=== PATIENT | male | born 1950 | race Caucasian/White ===

== ENCOUNTER 2018-04-22 08:12 | Outpatient (CLI) | payer OTHER ==
--- NOTE | 2018-04-22 09:33 | RAD ---
FOUR VIEWS LUMBAR SPINE INCLUDING FLEXION AND EXTENSION VIEWS: DATE: 04/22/2018. HISTORY: Lumbar radiculopathy, low back pain. FINDINGS: There are 5 [id number] lumbar-type vertebral bodies. Vertebral body heights are within normal l imits. There is trace grade I anterolisthesis of L4 on L5 without abnormal translation of motion see n between flexion and extension views. Facet degenerative changes are seen at the L4-5 and L5-S1 lev el with small scattered osteophytes seen throughout the visualized lower thoracic as well as involvin g the lumbar spine. There is narrowing of the intervertebral disk spaces at the L4-5 and L5-S1 level s. No fracture is seen. Prominent vascular calcifications are seen in the abdominal aorta and iliac arteries. Surgical clips overlie the right upper quadrant with a fractured median sternotomy wire s een inferiorly. IMPRESSION: Degenerative change of the lumbar spine with grade I anterolisthesis of L4 on L5. POS: [facility]
--- NOTE | 2018-04-22 09:37 | RAD ---
CERVICAL SPINE 4 VIEWS: Date: 04/22/18 HISTORY: Neck pain. Cervical fusion. COMPARISON: None. FINDINGS: Anterior fusion plate with transvertebral body screw at C4, C5, C6, and C7. The screws at C7 appear t o longer be flush with the vertebral body plate. Additionally, there is mild retraction of the screws at C4. No perihardware lucency. Disc prosthesis at C4-C5, C5-C6, and C6-C7 is noted. On the AP projection, no malalignment. Predental space is normal. In the neutral position, no malalignment. No abnormal motion upon extension or flexion. IMPRESSION: Findings suggesting loosening of the transvertebral body screws at C7 and C4. There is evidence of sc rew retraction. POS: [facility]
--- NOTE | 2018-04-22 10:55 | MRI ---
MRI LUMBAR SPINE WITHOUT CONTRAST: Date: 04/22/18 HISTORY: Lumbar radiculopathy. Chronic low back pain. Patient fell from a ladder 20 years ago. COMPARISON: None. TECHNIQUE: MRI lumbar spine is performed without intravenous Gadolinium administration. Multisequential, multipl akbar imaging is performed. FINDINGS: Appropriate T1 marrow signal intensity of the lumbar vertebra. Lumbar spine vertebral body height is maintained and there is no fracture. No significant STIR hyperintensity to suggest vertebral body hamlet ma or ligamentous injury. Symmetric signal intensity of the psoas muscles. There are multiple T1 hypointense, T2 hyperintense l esions in the kidneys, compatible with cortical cysts. Conus medullaris terminates at the upper aspect of L1. T12-L1: No significant central canal stenosis. Foramina are patent. L1-L2: No significant central canal stenosis. Neural foramina are patent. L2-L3: No significant loss of disc space height. Minimal broad based disc bulge, ligamentum flavum t hickening, and facet hypertrophy do not cause any significant central canal stenosis. Mild bilateral foraminal narrowing. L3-L4: Desiccation with mild loss of disc space height. Broad based disc bulge, ligamentum flavum th ickening, and facet hypertrophy result in mild central canal stenosis. Mild right and left foraminal narrowing. L4-L5: Desiccation with mild loss of disc space height. Broad based disc bulge, ligamentum flavum th ickening, and facet hypertrophy result in moderate to severe central canal stenosis. Mild to moderate right and moderate left foraminal narrowing. Small amount of fluid is noted in both facet joints. L5-S1: No significant central canal stenosis. Neural foramina are patent. There appear to be small s ynovial cysts adjacent to the right and left facet joints without significant encroachment upon the c entral spinal canal and neural foramina. IMPRESSION: Moderate to severe central canal stenosis at L4-L5. POS: [facility]
--- NOTE | 2018-04-22 11:27 | MRI ---
MRI THORACIC SPINE WITHOUT CONTRAST: Date: 04/22/18 HISTORY: Balance issues. Numbness down the left arm. Patient fell 20 years ago. COMPARISON: None. TECHNIQUE: MRI thoracic spine is performed without contrast. Multisequential, multiplanar imaging is performed. FINDINGS: There is appropriate T1 marrow signal intensity of the thoracic vertebra. Vertebral body height is ma intained. There is no fracture. Intrinsic T1 and T2 hyperintensity at T9 compatible with an osseous h emangioma. Similar signal intensity lesions are noted at T1 and T6. No significant STIR hyperintensit y to suggest edema or ligamentous injury. Visualized mediastinal structures, lung parenchyma, and solid organs are grossly unremarkable. Redemo nstration of bilateral renal cortical cysts. The thoracic cord has an overall normal size and signal intensity. No cord edema or cord expansion. C onus medullaris terminates at the T12-L1 disc space level. T12-L1 through T7-T8: No significant central canal stenosis or foraminal narrowing. T8-T9: Small central disc bulge which deforms the thecal sac and minimally indents the ventral cord. Mild central canal stenosis. T9-T10 through T11-T12: No significant central canal stenosis. Throughout the thoracic spine, neural foramina are patent. IMPRESSION: No significant central canal stenosis or foraminal narrowing. POS: [facility]
--- NOTE | 2018-04-22 11:52 | CT ---
CT CERVICAL SPINE WITHOUT IV CONTRAST: Date: 04/22/18 HISTORY: Cervical spine surgery 5 years ago. Patient continues to have balance problems and left arm and hand numbness. Patient also has neck pain. COMPARISON: None available. TECHNIQUE: Contiguous axial CT images are obtained through the cervical spine from the skull base to the T2-3 le dallin. Sagittal and coronal reformatted images are provided. FINDINGS: There are postsurgical changes related to anterior cervical fusion with anterior plate and screws tra nsfixing the C4-5, C5-6, and C6-7 levels with intradiscal prostheses at these levels. The left screw in C4 and bilateral C7 screws are not flush with the anterior plate. There is no fracture or subluxation identified. There is mild uncinate process hypertrophy present at the C2-3 level with suggestion of mild central disc protrusion. This does result in mild effacement of the ventral subarachnoid space. There is no b lula encroachment on the neural foramina bilaterally. C2-3 Level: There is a mild broad based disc osteophyte complex. This results in generalized narrowi ng of the central spinal canal. There is no bony encroachment on the neural foramina. C4-5 Level: There is posterior osteophyte formation present, which does result in generalized narrow ing of the central spinal canal. There is mild left-sided neural foraminal narrowing due to bony encr oachment. No bony encroachment is seen involving the right neural foramen. C5-6 Level: There is posterior osteophyte formation and uncinate process hypertrophy. This results i n narrowing of the ventral subarachnoid space. There is mild to moderate bilateral neural foraminal n arrowing related to bony encroachment. C6-7 Level: There is posterior osteophyte formation which narrows the ventral subarachnoid space and does appear to encroach on the anterior aspect of the spinal cord and probably results in slight fla ttening of the anterior aspect of the spinal cord. There is mild bilateral neural foraminal narrowing . C7-T1 Level: No bony encroachment is seen involving the central spinal canal or neural foramina. Prevertebral soft tissues are within normal limits. Vascular calcifications seen in the carotid arteries. There is minimal biapical pleural and parenchymal scarring present. IMPRESSION: 1. Postsurgical changes related to anterior cervical fusion of C4 through C7. The left screw in C4 a nd bilateral C7 screws are not flush with the anterior plate. There is posterior osteophyte formation at levels of postsurgical changes which encroach on the neural foramina at these levels. 2. Broad based disc osteophyte complex at C3-4 level resulting in narrowing of the central spinal ca nal. POS: [facility]
--- NOTE | 2018-04-22 12:19 | MRI ---
MRI CERVICAL SPINE WITHOUT CONTRAST: Date: 04/22/18 HISTORY: Neck pain. Previous cervical fusion. Numbness in left arm. Balance issues. COMPARISON: None. TECHNIQUE: MRI cervical spine is performed without intravenous Gadolinium administration. Multisequential, multi planar imaging is performed. FINDINGS: There is metallic susceptibility artifact associated with cervical fusion plate that spans the C4 thr ough C7 level. There is fusion of the disc space at C4-C5, C5-C6, and C6-C7. Visualized brain parenchyma and cervicomedullary junction have a normal size and signal intensity. Th ere is abnormal T2 hyperintensity involving the cervical cord at the C4-C5 disc space level. No significant STIR hyperintensity to suggest vertebral body edema or ligamentous injury. C2-C3: No significant disc osteophyte complex. No significant central canal stenosis. Neural foramin a are patent. C3-C4: There is a broad based disc osteophyte complex that abuts the thecal sac. Mild central canal stenosis. Neural foramina are patent. C4-C5: There is a broad based osteophyte ridge. There is severe central canal stenosis. There is def ormity of the cervical cord. T2 hyperintensity in the cord likely representing cord malacia. C5-C6: Broad based osteophyte ridge with a central component. Mild to moderate central canal stenosi s. Moderate to severe right foraminal narrowing. Moderate left foraminal narrowing due to degenerativ e changes of the uncovertebral joint. C6-C7: There is a central/right paracentral osteophyte ridge. Mild to moderate central canal stenosi s. There is deformity of the right hemicord. Moderate right and left foraminal narrowing. C7-T1: No high grade central canal stenosis. Neural foramina are patent bilaterally. IMPRESSION: Significant central canal stenosis at multiple levels as described above. 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 POS: [facility]
== END 2018-04-22 08:13 | disposition home or self-care (01) ==
LOC: BICMRI 08:12
PROVIDERS: ATTEND Physician Assistant Surgical
DX: M54.2 Cervicalgia (principal); R26.89 Other abnormalities of gait and mobility; M48.02 Spinal stenosis, cervical region; M99.81 Other biomechanical lesions of cervical region; M47.26 Other spondylosis with radiculopathy, lumbar region; M43.16 Spondylolisthesis, lumbar region; M48.061 Spinal stenosis, lumbar region without neurogenic claudication; G95.89 Other specified diseases of spinal cord
CPT/HCPCS: 72050; 72110; 72125; 72141; 72146; 72148; 72156; 82565

== ENCOUNTER → 2019-03-14 | Day surgery (SDC) | payer OTHER | LOC: SDC 06:04 | PROVIDERS: ATTEND Surgery | DX: M48.062 Spinal stenosis, lumbar region with neurogenic claudication (principal); M54.16 Radiculopathy, lumbar region; Z53.9 Procedure and treatment not carried out, unspecified reason ==

== ENCOUNTER 2019-03-23 06:08 | Inpatient (IN) | payer OTHER ==
[2019-03-23] MEDS ORDERED: Sodium Chloride 0.9% 10 ML ONE (06:31)
[2019-03-23] MEDS ORDERED: Thrombin 5000 UNITS/5 ML VIAL ONE (06:31)
[2019-03-23] MEDS ORDERED: Fentanyl 250 MCG/5 ML VIAL ONE (06:45)
[2019-03-23 06:48] LABS: #Basophils 0.1 thou/uL (0.0-0.2); #Eosinphils 0.5 thou/uL (0.0-0.7); #Lymphocytes 2.5 thou/uL (1.20-3.40); #Monocytes 0.7 thou/uL (0.11-0.59); %Basophils 1.1 % (0.0-1.0); %Eosinophils 5.1 % (0.0-10.0); %Lymphocytes 25.5 % (21.0-51.0); %Monocytes 6.7 % (0.0-10.0); %Neutrophils 61.7 % (42.0-75.0); Hemoglobin 13.8 g/dL (14.0-18.0); Mean Corpuscular Hemoglobin 29.9 pg (27.0-31.0); Mean Corpuscular Volume 93.3 fL (78.0-98.0); Mean Platelet Volume 8.2 fL (7.4-10.4); Platelet Count 229 thou/uL (130-400); RBC Distribution Width 12.9 % (11.5-14.5); Red Blood Cell (RBC) Count 4.62 mill/uL (4.70-6.10); White Blood Cell (WBC) Count 9.7 thou/uL (4.8-10.8)
[2019-03-23 06:56] LABS: PTT 30.6 SEC (22.9-36.1); Prothrombin Time 12.9 SEC (12.0-14.7)
[2019-03-23 07:41] LABS: Calcium 10.2 mg/dL (7.8-10.44); Chloride 107 mmol/L (98-107); Glucose 97 mg/dL (80-115); Potassium 4.7 mmol/L (3.5-5.1); Sodium 139 mmol/L (136-145)
[2019-03-23 07:43] LABS: Anion Gap 13 mmol/L (10-20); Carbon Dioxide 24 mmol/L (23-31)
[2019-03-23 07:45] LABS: Calc. Creatinine Clearance 62 mL/min (70-130); Estimated GFR-MDRD 41
[2019-03-23 07:46] LABS: BUN (Urea Nitrogen) 24 mg/dL (8.4-25.7)
[2019-03-23] MEDS ORDERED: Promethazine HCl 25 MG/ML VIAL IM PRN (10:40)
[2019-03-23] MEDS ORDERED: Morphine Sulfate 2 MG/ML SYRINGE SLOW IVP PRN (10:40)
[2019-03-23] MEDS ORDERED: HYDROmorphone 2 MG/ML VIAL SLOW IVP PRN (10:40)
[2019-03-23] MEDS ORDERED: PACU-Morphine 4MG/ML VIAL SLOW IVP PRN (10:40)
[2019-03-23] MEDS ORDERED: Ondansetron HCl/PF 4 MG/2 ML Vial IVP PRN (10:40)
[2019-03-23] MEDS ORDERED: Promethazine HCl 25 MG/ML VIAL SLOW IVP PRN (10:40)
[2019-03-23] MEDS ORDERED: Fleet Enema 133 ML BOT PR PRN (10:56)
[2019-03-23] MEDS ORDERED: Milk Of Magnesia 30 ML UDCUP PO PRN (10:56)
[2019-03-23] MEDS ORDERED: Acetaminophen 325 MG TAB PO PRN (10:56)
[2019-03-23] MEDS ORDERED: tiZANidine HCl 4 MG TAB PO PRN (10:56)
[2019-03-23] MEDS ORDERED: Acetaminophen/Codeine 30-300mg Tablet PO PRN (10:56)
[2019-03-23] MEDS ORDERED: traMADol HCl 50 MG TAB PO PRN (10:56)
[2019-03-23] MEDS ORDERED: Mag-Al 1200 mg/1200 mg/30 ML UDCUP PO PRN (10:56)
[2019-03-23] MEDS ORDERED: Bisacodyl 10 MG SUPP PR PRN (10:56)
[2019-03-23] MEDS ORDERED: Fentanyl 100 MCG/2 ML VIAL ONE (11:14)
[2019-03-23] MEDS ORDERED: HYDROmorphone 2 MG/ML VIAL ONE (11:34)
[2019-03-23] MEDS ORDERED: PROPOFOL 200 MG/20 ML VIAL ONE (12:09)
[2019-03-23] MEDS ORDERED: ePHEDrine 50 MG/ML VIAL ONE (12:09)
[2019-03-23] MEDS ORDERED: PHENYLEPHRINE-NS 100 MCG/ML 10 ML SYRINGE ONE (12:09)
[2019-03-23] MEDS ORDERED: Dexamethasone 20 MG/5 ML VIAL ONE (12:09)
[2019-03-23] MEDS ORDERED: Lidocaine 1% PF 5 ML VIAL ONE (12:09)
[2019-03-23] MEDS ORDERED: Ondansetron PF 4 MG/2 ML Vial ONE (12:09)
[2019-03-23] MEDS ORDERED: Rocuronium Bromide 10 MG/ML (10ML VIAL) ONE (12:09)
[2019-03-23] MEDS ORDERED: Glycopyrrolate 0.2 MG/ML 5 ML SYRINGE ONE (12:09)
[2019-03-23] MEDS ORDERED: Metoclopramide HCl 10 MG/2 ML VIAL ONE (12:09)
--- NOTE | 2019-03-23 12:53 | OP ---
DATE OF PROCEDURE: 03/23/2019 ACTIVE DIRECTORY SPECIALIST: Issac Kim PA-C. PREPROCEDURE DIAGNOSIS: Lumbar stenosis with low back and leg pain with lumbar radiculopathy. POSTPROCEDURE DIAGNOSIS: Lumbar stenosis with low back and leg pain with lumbar radiculopathy. PROCEDURES PERFORMED: L3-L4 and L4-L5 laminectomy, partial facetectomy, and foraminotomies. DESCRIPTION OF PROCEDURE: After informed consent was obtained from the patient, the patient was brought to the OR. Proper patient, pause, and identification were carried out. He was placed under excellent general endotracheal anesthesia and positioned prone on the OR table. All appropriate points were padded. We identified the L3, L4, L5 dorsal spines and lamina. A linear domenic was made over this region. This area was sterilely cleansed, prepared, and draped. Proper patient, pause, and identification were carried out. The wound was then opened with combination of sharp, monopolar, and blunt dissection, and the L3, L4, and L5 dorsal spines and lamina were exposed. Localization confirmed our area of interest. We then performed L3, L4, L5 laminectomies, partial facetectomies, and foraminotomies. We had excellent decompression of the common dural tube in the L3, L4, and L5 nerve roots. Copious irrigation occurred throughout as did maximizing hemostasis. The wound was then closed in anatomic layers following sprinkling of vancomycin powder. Copious irrigation with closure of anatomic layers. The patient emerged from anesthesia. Job ID: [id number]
[2019-03-23] MEDS: HYDROcodone/Acetaminophen 7.5/325 mg Tablet PO PRN (14:20)
[2019-03-23] MEDS: CEFAZOLIN 2 GM in Premix Bag 1 BAG IVPB SCH ×2 (14:21→22:57)
[2019-03-23] MEDS: Sodium Chloride 0.9% 1,000 ML IV SCH ×2 (14:21→22:56)
[2019-03-23] MEDS: Ondansetron PF 4 MG/2 ML Vial IVP PRN (14:50)
[2019-03-23] MEDS ORDERED: Nitroglycerin 0.4 MG TAB (25 Tab Bottle) PO PRN (16:52)
[2019-03-23] MEDS ORDERED: Aspirin 81 mg Enteric Coated Tablet PO SCH (16:53)
[2019-03-23] MEDS ORDERED: Aspirin Chewable 81 MG TAB PO STA (16:58)
[2019-03-23] MEDS ORDERED: Nitroglycerin 2% Ointment 1 INCH/1 GM Packet TOP SCH (17:00)
[2019-03-23] MEDS ORDERED: Nitroglycerin 50 MG/250 ML BOT 250 ML IVPB SCH (17:00)
[2019-03-23] MEDS: Morphine 2 MG/ML SYRINGE SLOW IVP PRN (17:36)
[2019-03-23] MEDS: Aspirin 81 mg Enteric Coated Tablet PO SCH (17:39)
--- NOTE | 2019-03-23 17:45 | CON ---
DATE OF CONSULTATION: 03/23/2019 REASON FOR CONSULTATION: Acute RI. HISTORY OF PRESENT ILLNESS: Mr. Pacheco is a very pleasant 68-year-old white gentleman, who comes to the hospital for a planned surgical procedure. He underwent an L3-L4 and L4-L5 laminectomy with partial facetectomy and foraminotomies. This happened earlier this morning. He started having bradycardia and an EKG was ordered, eventually started having neck pain and left shoulder pain, so a repeat EKG was done and it showed lateral ST elevations with reciprocal anterior depressions suggestive of an acute lateral ST-elevation RI. Cardiology is being consulted for this. On my evaluation, Mr. Pacheco continues to have pain, it is actually somewhat mild, but he states it is the exact same pain he had back when he needed a stent placed during his first heart attack about 2 years ago. He denies any chest pain. It is more just neck and jaw pain as well as left shoulder pain. PAST MEDICAL HISTORY: 1. Coronary artery disease, status post stenting about 2 years ago and subsequent CABG x3 about a year and a half ago. 2. Hypertension. 3. Hyperlipidemia. 4. Type 2 diabetes. 5. BPH. PAST SURGICAL HISTORY: 1. Coronary stent placement. 2. Left knee surgery. 3. Neck fusion. 4. Right shoulder surgery. 5. L3-L4 and L4-L5 laminectomies earlier today. OUTPATIENT MEDICATIONS: Include; 1. Losartan 25 mg a day. 2. Metoprolol 100 mg b.i.d. 3. Norvasc 5 mg b.i.d. 4. Crestor 10 mg at bedtime. 5. Omeprazole 40 mg a day. 6. Plavix 75 mg a day. 7. Ezetimibe daily. 8. Hydralazine 25 mg b.i.d. 9. Glipizide p.o. b.i.d. ALLERGIES: NO KNOWN DRUG ALLERGIES. SOCIAL HISTORY: No alcohol, tobacco, or drugs. FAMILY HISTORY: Positive for early coronary artery disease. REVIEW OF SYSTEMS: A 12-point review of systems was done and was all negative unless stated in the history of present illness. PHYSICAL EXAMINATION: VITAL SIGNS: Temperature 97.2, pulse 102, respiratory rate 16, saturating 96% on 2 L nasal cannula, and blood pressure 146/73. GENERAL: Awake, alert, and oriented x3, in no distress. HEENT: Normocephalic and atraumatic. NECK: Supple. LUNGS: Clear. CARDIOVASCULAR: S1 and S2. No S3 or S4. No murmurs. ABDOMEN: Soft. Positive bowel sounds. EXTREMITIES: No edema. SKIN: Warm and dry. LABORATORY DATA: Laboratory work was reviewed. Most recent laboratory work was earlier this morning with a white count of 9, hemoglobin of 13, hematocrit 43, and platelet count of 229. Coags were reviewed. Chemistries were reviewed. Sodium of 139, potassium of 4.7, chloride of 107, carbon dioxide of 24, anion gap of 13, BUN of 24, creatinine of 1.68, GFR of 41, glucose of 97, and calcium of 10.2. EKG was reviewed. He has ST elevation in the lateral leads with reciprocal changes. ASSESSMENT: 1. Acute lateral ST-elevation myocardial infarction. 2. Postoperative myocardial infarction. 3. Status post lumbar laminectomy earlier today. 4. Coronary artery disease status post coronary artery bypass grafting x3 just a year and a half ago. 5. Hypertension. 6. Diabetes. PLAN: 1. I had a long conversation with him and his about how to proceed. To minimize the risks to his lumbar back, he is only a candidate for a baby aspirin at this time. If we were to do full anticoagulation and taken to the catheterization lab, and possibly put him on Plavix, aspirin, or heparin, we would risk severe disability with bleeding into his lower back and paraplegia. Currently, the family is not interested in this. They wanted just medical conservative therapy for this acute RI. They are well aware that this may entail having severe LV dysfunction or weak heart later, and they understand and verbalized understanding of this. I also stated that if he were to start having a life-threatening arrhythmias or I think he is becoming unstable, we may have to be a little more aggressive with his care and they are okay with this. At this time, we will continue to be conservative. We will give him a baby aspirin, which is the only thing he could have from the surgical standpoint. We will agree with nitroglycerin drip, try to keep his blood pressure down and his pain level minimal as possible with the nitroglycerin as well as p.r.n. morphine. 2. I spoke with him and his family as well as the son-in-law, who is one of our orthopedic surgeons and they verbalized understanding of this. We will continue to monitor in the ICU for now. Thank you for letting us to participate in the care of your patient. We will follow. A 45 minutes of critical care time. Job ID: [id number]
--- NOTE | 2019-03-23 19:46 | PDOC.HOSPP ---
- Subjective Encounter Date: 03/23/19 Encounter Time: 18:00 Subjective: Patient seen and examined for med mngt. Was found to have bradycardia during routine vitals. Then developed shoulder/jaw pain. No palpitations/diaphoresis. h /o coronary stents >2 yrs ago. CABG 1.5 yrs ago. Off Plavix for last 9 days. No other complaints. No overnight events - Objective Vital Signs & Weight: Vital Signs (12 hours) Temp Pulse Resp BP Pulse Ox 03/23/19 15:45 98.4 F 90 18 148/82 H 95 03/23/19 13:28 95 03/23/19 12:50 97.4 F L 84 18 149/66 H 95 Weight Weight 239 lb Result Diagrams: 03/23/19 06:42 03/23/19 06:42 EKG Reviewed by me: Yes (SR with ST changes) Hospitalist ROS - Review of Systems Respiratory: denies: cough, dry, shortness of breath, hemoptysis, SOB with excertion, pleuritic pain, sputum, wheezing, other Cardiovascular: denies: chest pain, palpitations, orthopnea, paroxysmal noc. dyspnea, edema, light headedness, other Gastrointestinal: denies: nausea, vomiting, abdominal pain, diarrhea, constipation, melena, hematochezia, other - Medication Medications: Active Medications Generic Name Dose Route Start Last Admin Trade Name Freq PRN Reason Stop Dose Admin Hydrocodone Bitart/Acetaminophen 1 tab 03/23/19 10:56 03/23/19 14:20 [place] 7.5/325 PO 1 tab Q4H PRN Administration Moderate Pain (4-6) Aspirin 81 mg 03/24/19 09:00 03/23/19 17:39 Ecotrin PO 81 mg DAILY SHRUTHI Administration Cefazolin Sodium/Dextrose 2 gm 50 mls @ 100 mls/hr 03/23/19 15:00 03/23/19 14 :21 / Device IVPB 03/23/19 23:29 50 mls [id number],1500,[id number] SHRUTHI Administration Sodium Chloride 1,000 mls @ 75 mls/hr 03/23/19 11:00 03/23/19 14:21 Normal Saline 0.9% IV 1,000 mls .[id number] SHRUTHI Administration Nitroglycerin/Dextrose 250 mls @ 0 mls/hr 03/23/19 17:00 03/23/19 17:35 Nitroglycerin 50 Mg/250 Ml Bot IVPB 250 mls INF SHRUTHI Administration Protocol Titrate Morphine Sulfate 2 mg 03/23/19 10:56 03/23/19 17:36 Morphine SLOW IVP 2 mg Q1H PRN Administration Moderate Pain (4-6) Ondansetron HCl 4 mg 03/23/19 10:56 03/23/19 14:50 Zofran IVP 4 mg Q6H PRN Administration Nausea/Vomiting Tizanidine HCl 4 mg 03/23/19 10:56 03/23/19 14:20 Zanaflex PO 4 mg TIDPRN PRN Administration Muscle Spasm - Exam General Appearance: NAD Neck: supple, no JVD Heart: RRR, no gallops, no rubs Respiratory: CTAB, no rales Gastrointestinal: soft, non-tender, normal bowel sounds Extremities: no edema Neurological: no new deficit Hosp A/P (1) Chest pain Code(s): R07.9 - CHEST PAIN, UNSPECIFIED Status: Acute (2) CAD (coronary artery disease) Code(s): I25.10 - ATHSCL HEART DISEASE OF [place] CORONARY ARTERY W/O ANG PCTRS Status: Chronic (3) DM type 2 (diabetes mellitus, type 2) Status: Chronic Qualifiers: Chronic kidney disease stage: stage 3 (moderate) (4) HLD (hyperlipidemia) Code(s): E78.5 - HYPERLIPIDEMIA, UNSPECIFIED Status: Chronic (5) HTN (hypertension) Code(s): I10 - ESSENTIAL (PRIMARY) HYPERTENSION Status: Chronic (6) Obesity (BMI 30.0-34.9) Code(s): E66.9 - OBESITY, UNSPECIFIED Status: Acute - Plan plan discussed w/ family Started on ASA 81 mg - Dr Rader verified with Neurosurgery CCU monitoring Nitroglycerin drip Resume Metoprolol at low dose Restart Losartan Sliding scale NPO Hold Glipizide AM labs Serial troponins Echo Statins Full code. DPOA - spouse
[2019-03-23] MEDS ORDERED: Insulin Regular 300 UNITS/3 ML VIAL SC PRN ×2 (19:48)
[2019-03-23] MEDS ORDERED: Dextrose 5% in Water 1,000 ML IV PRN (19:48)
[2019-03-23] MEDS ORDERED: Dextrose 50% Abboject 50 ML SYRINGE SLOW IVP PRN (19:48)
[2019-03-23] MEDS ORDERED: hydrALAZINE 25 MG TAB PO SCH (21:00)
[2019-03-23] MEDS ORDERED: Atorvastatin Calcium 10 MG TAB PO SCH (21:00)
[2019-03-23] MEDS: Rosuvastatin 10 MG TAB PO SCH (21:07)
[2019-03-23] MEDS: Metoprolol Tartrate 25 MG TAB PO SCH (21:08)
[2019-03-23 21:17] LABS: Calcium 8.9 mg/dL (7.8-10.44); Chloride 105 mmol/L (98-107); Potassium 4.9 mmol/L (3.5-5.1); Sodium 136 mmol/L (136-145)
[2019-03-23 21:22] LABS: Albumin 3.7 g/dL (3.4-4.8)
[2019-03-23 21:25] LABS: Globulin 2.7 g/dL (2.4-3.5); Glucose 244 mg/dL (80-115); Protein, Total 6.4 g/dL (5.8-8.1)
[2019-03-23 21:26] LABS: Anion Gap 16 mmol/L (10-20); CKMB 21.9 ng/mL (0-6.6); Carbon Dioxide 20 mmol/L (23-31)
[2019-03-23 21:27] LABS: Bilirubin, Total 0.7 mg/dL (0.2-1.2)
[2019-03-23 21:28] LABS: Alkaline Phosphatase 82 U/L (40-150); Calc. Creatinine Clearance 52 mL/min (70-130); Estimated GFR-MDRD 33; Phosphorus 4.1 mg/dL (2.3-4.7)
[2019-03-23 21:29] LABS: BUN (Urea Nitrogen) 30 mg/dL (8.4-25.7)
[2019-03-23 21:30] LABS: AST (SGOT) 41 U/L (5-34)
[2019-03-23 21:31] LABS: ALT (SGPT) 17 U/L (8-55); Magnesium 1.7 mg/dL (1.6-2.6)
[2019-03-23] MEDS: ALPRAZolam 0.25 MG TAB PO PRN (23:12)
[2019-03-24 00:24] LABS: CKMB 56.4 ng/mL (0-6.6)
[2019-03-24] MEDS: Morphine 2 MG/ML SYRINGE SLOW IVP PRN ×4 (03:34→18:00)
[2019-03-24 06:39] LABS: #Lymphocytes 1.1 thou/uL (1.20-3.40); #Monocytes 1.1 thou/uL (0.11-0.59); #Neutrophils 15.6 thou/uL (1.40-6.50); %Basophils 0.2 % (0.0-1.0); %Eosinophils 0.1 % (0.0-10.0); %Lymphocytes 6.1 % (21.0-51.0); %Monocytes 6.2 % (0.0-10.0); %Neutrophils 87.5 % (42.0-75.0); Hemoglobin 12.1 g/dL (14.0-18.0); Mean Corpuscular HGB CONC 32.7 g/dL (32.0-36.0); Mean Corpuscular Hemoglobin 30.5 pg (27.0-31.0); Mean Corpuscular Volume 93.4 fL (78.0-98.0); Mean Platelet Volume 8.6 fL (7.4-10.4); Platelet Count 207 thou/uL (130-400); RBC Distribution Width 12.8 % (11.5-14.5); Red Blood Cell (RBC) Count 3.97 mill/uL (4.70-6.10); White Blood Cell (WBC) Count 17.9 thou/uL (4.8-10.8)
[2019-03-24 07:03] LABS: Anion Gap 11 mmol/L (10-20); BUN (Urea Nitrogen) 33 mg/dL (8.4-25.7); Calc. Creatinine Clearance 58 mL/min (70-130); Calcium 8.7 mg/dL (7.8-10.44); Carbon Dioxide 23 mmol/L (23-31); Cardiac Risk 2.7 (Less than 4.5); Chloride 106 mmol/L (98-107); Cholesterol 108 mg/dl (< 200 Desired); Estimated GFR-MDRD 36; Glucose 179 mg/dL (80-115); HDL Cholesterol 40 mg/dL (>60 Neg Risk); LDL Cholesterol, Calculated 50 mg/dL; Sodium 135 mmol/L (136-145); Triglycerides 92 mg/dL (Less than 150)
--- NOTE | 2019-03-24 07:22 | PDOC.HOSPP ---
- Subjective Encounter Date: 03/24/19 Encounter Time: 06:45 Subjective: Patient seen and examined for med mgt. No CP. Remains on NTG drip. No new complaints. No overnight events - Objective Vital Signs & Weight: Vital Signs (12 hours) Temp 03/24/19 04:00 98.1 F 03/24/19 00:00 98.5 F 03/23/19 20:00 98.4 F Weight Weight 244 lb 11.41 oz Most Recent Monitor Data Heart Rate from ECG 89 NIBP 133/72 NIBP BP-Mean 92 Respiration from ECG 19 SpO2 97 I&O: 03/23/19 03/24/19 03/25/19 06:59 06:59 06:59 Intake Total 961.5 901.5 Output Total 325 50 Balance 636.5 851.5 Result Diagrams: 03/24/19 06:30 03/24/19 06:30 Additional Labs: Accuchecks 03/24/19 03/24/19 03/23/19 04:06 00:21 23:20 POC Glucose 187 H 182 H 208 H 03/23/19 21:30 POC Glucose 256 H EKG Reviewed by me: Yes (SR) Hospitalist ROS - Review of Systems Respiratory: denies: cough, dry, shortness of breath, hemoptysis, SOB with excertion, pleuritic pain, sputum, wheezing, other Cardiovascular: denies: chest pain, palpitations, orthopnea, paroxysmal noc. dyspnea, edema, light headedness, other - Medication Medications: Active Medications Generic Name Dose Route Start Last Admin Trade Name Freq PRN Reason Stop Dose Admin Hydrocodone Bitart/Acetaminophen 1 tab 03/23/19 10:56 03/23/19 14:20 [place] 7.5/325 PO 1 tab Q4H PRN Administration Moderate Pain (4-6) Alprazolam 0.25 mg 03/23/19 19:51 03/23/19 23:12 Xanax PO 0.25 mg BIDPRN PRN Administration Anxiety Aspirin 81 mg 03/24/19 09:00 03/23/19 17:39 Ecotrin PO 81 mg DAILY SHRUTHI Administration Atorvastatin Calcium 10 mg 03/23/19 21:00 03/23/19 21:08 Lipitor PO 10 mg HS SHRUTHI Administration Sodium Chloride 1,000 mls @ 75 mls/hr 03/23/19 11:00 03/23/19 22:56 Normal Saline 0.9% IV 1,000 mls .[id number] SHRUTHI Administration Nitroglycerin/Dextrose 250 mls @ 0 mls/hr 03/23/19 17:00 03/23/19 17:35 Nitroglycerin 50 Mg/250 Ml Bot IVPB 250 mls INF SHRUTHI Administration Protocol Titrate Insulin Human Regular 0 units 03/23/19 19:48 03/23/19 21:31 Humulin R SC 3 unit .BEDTIME SLIDING SC PRN Administration Bedtime Correctional Scale Metoprolol Tartrate 12.5 mg 03/23/19 21:00 03/23/19 21:08 Lopressor PO 12.5 mg BID SHRUTHI Administration Morphine Sulfate 2 mg 03/23/19 10:56 03/24/19 03:34 Morphine SLOW IVP 2 mg Q1H PRN Administration Moderate Pain (4-6) Ondansetron HCl 4 mg 03/23/19 10:56 03/23/19 14:50 Zofran IVP 4 mg Q6H PRN Administration Nausea/Vomiting Rosuvastatin Calcium 10 mg 03/23/19 21:00 03/23/19 21:07 Crestor PO 10 mg HS SHRUTHI Administration Tizanidine HCl 4 mg 03/23/19 10:56 03/23/19 14:20 Zanaflex PO 4 mg TIDPRN PRN Administration Muscle Spasm - Exam General Appearance: NAD (on NTG drip) Neck: supple, no JVD Heart: RRR, no gallops Respiratory: CTAB, no wheezes, no rales, no ronchi Gastrointestinal: soft, non-tender, normal bowel sounds Extremities: no edema Neurological: no new deficit Hosp A/P (1) Chest pain Code(s): R07.9 - CHEST PAIN, UNSPECIFIED Status: Acute (2) STEMI (ST elevation myocardial infarction) Status: Acute (3) CAD (coronary artery disease) Code(s): I25.10 - ATHSCL HEART DISEASE OF [place] CORONARY ARTERY W/O ANG PCTRS Status: Chronic (4) DM type 2 (diabetes mellitus, type 2) Status: Chronic Qualifiers: Chronic kidney disease stage: stage 3 (moderate) (5) HLD (hyperlipidemia) Code(s): E78.5 - HYPERLIPIDEMIA, UNSPECIFIED Status: Chronic (6) HTN (hypertension) Code(s): I10 - ESSENTIAL (PRIMARY) HYPERTENSION Status: Chronic (7) Obesity (BMI 30.0-34.9) Code(s): E66.9 - OBESITY, UNSPECIFIED Status: Acute - Plan plan discussed w/ family Cont ASA 81 mg/low dose BB/ARB and Statins Cont Nitroglycerin drip Restart Glipizide at low dose Cont Sliding scale Add Lantus 10 units BID Hold Glipizide AM labs Repeat troponins later today Echo reviewed Cont bed rest Hold PT/OT for now No dual antiplatelets due to recent back surgery
[2019-03-24] MEDS ORDERED: Calcium Carbonate 500 MG ChewTAB PO PRN (07:26)
[2019-03-24] MEDS ORDERED: glipiZIDE 5 MG TAB PO SCH (07:30)
[2019-03-24 07:34] LABS: CKMB 134.7 ng/mL (0-6.6)
[2019-03-24] MEDS: Senokot S 8.6-50 MG TAB PO SCH ×2 (08:12→23:01)
[2019-03-24] MEDS: Losartan 25 MG TAB PO SCH (08:12)
[2019-03-24] MEDS: Ezetimibe 10 MG TAB PO SCH (08:12)
[2019-03-24] MEDS: Aspirin 81 mg Enteric Coated Tablet PO SCH (08:12)
--- NOTE | 2019-03-24 08:29 | CON ---
DATE OF CONSULTATION: HISTORY OF PRESENT ILLNESS: He is a 68-year-old gentleman who underwent laminectomy, who postop developed shoulder and jaw pain, and was bradycardic. He was transferred to the ICU and was seen by Cardiology, and remains in the ICU, the reason for consult. He had an echocardiogram done, which shows his EF is normal. He has diastolic dysfunction. Former smoker, quit smoking 15 years ago. No history of pneumonia, asthma, or TB. PAST MEDICAL HISTORY: Coronary artery disease, status post stenting two years ago, previous CABG, hypertension, hyperlipidemia, diabetes, and BPH. PREVIOUS SURGERIES: Neck surgery, shoulder, recent laminectomy, lumbar, and left knee. SOCIAL HISTORY: He is a process line operator. HOME MEDICATIONS: 1. Hydralazine 25. 2. Glipizide twice a day. 3. Crestor 10. 4. Omeprazole 10. 5. 100. 6. Cozaar 25. 7. Zetia. 8. Plavix. 9. Norvasc. ALLERGIES: NONE. REVIEW OF SYSTEMS: Negative. PHYSICAL EXAMINATION: VITAL SIGNS: Saturations are 98% on 2 L, blood pressure 133/72, respiratory rate 18, pulse 80. CHEST: Reveal no wheezing, crackles. CARDIAC: Normal S2. No gallops. No murmurs. ASSESSMENT: 1. Acute coronary syndrome. 2. Status post lumbar laminectomy. 3. Diabetes. 4. Azotemia. 5. Former smoker. 6. Benign prostatic hyperplasia. PLAN: Pulmonary womack, we will continue to follow in the ICU. Continue cardiac care. A baseline chest x-ray is being ordered. Consultation note, 70 minutes, 50% direct patient care. Job ID: [id number]
--- NOTE | 2019-03-24 09:21 | PRG ---
DATE OF SERVICE: 03/24/2019 Mr. Pacheco is postoperative day 1 from L3 to L5 laminectomy, partial facetectomy, and foraminotomy. He has a cardiac history of triple bypass in 2 years ago and had been on aspirin and Plavix. He yesterday again underwent uneventful lumbar laminectomy and when taken up to the floor, he had an episode of bradycardia into the low 40s. This prompted EKG, which was concerning for myocardial infarct. Dr. Rader saw the patient as well and was also concerned. Troponins have now confirmed this. I should note it was symptomatic and that he had transient left jaw pain and pain into his left arm, which was similar to what he had prior to his bypass. His hemodynamics now overnight after transfer to the ICU have remained stable. He had an echocardiogram demonstrating an ejection fraction of 50% to 55%. He has been asymptomatic in regard to ischemia. Neurologically, he is intact. He has been initiated on morphine, oxygen, nitroglycerin drip, and baby aspirin. We will continue the baby aspirin. I would not start Plavix, preferably in addition to the aspirin for 10 days postoperatively. At this point, his activity is as tolerated from a neurosurgical standpoint, but obviously he will need cardiac monitoring per our colleagues. Job ID: [id number]
--- NOTE | 2019-03-24 10:12 | RAD ---
PORTABLE CHEST: HISTORY: Coronary artery disease. FINDINGS: Heart size appears borderline for portable technique and postop sternotomy changes. Lungs show chron ic change. No focal infiltrates or signs of failure. IMPRESSION: 1. Borderline to minimal cardiomegaly with postop sternotomy changes. 2. Some mild chronic-appearing lung change. POS: TPC
[2019-03-24] MEDS ORDERED: Labetalol HCl 100 MG/20 ML VIAL ONE (12:00)
--- NOTE | 2019-03-24 12:03 | PDOC.CPN ---
- Subjective Date: 03/24/19 Time: 12:00 - Review of Systems General: denies: fever/chills, weight/appetite/sleep changes, night sweats, fatigue Respiratory: denies: cough, congestion, shortness of breath, exercise intolerance Cardiovascular: denies: chest pain, palpitation, edema, paroxysmal nocturnal dyspnea, orthopnea Gastrointestinal: denies: nausea, vomiting, diarrhea, constipation, abd pain, GI bleeding Musculoskeletal: reports: pain. denies: tenderness, stiffness, swelling, arthritis/arthralgias Neurological: denies: numbness, syncope, seizure, weakness - Objective Allergies/Adverse Reactions: Allergies Allergy/AdvReac Type Severity Reaction Status Date / Time No Known Allergies Allergy Verified 03/23/19 13:06 Visit Medications: Current Medications Acetaminophen (Tylenol) 650 mg PO Q4H PRN PRN Reason: Headache/Fever/Mild Pain (1-3) Acetaminophen/Codeine Phosphate (Tylenol #3) 1 tab PO Q3H PRN PRN Reason: Mild Pain (1-3) Hydrocodone Bitart/Acetaminophen ([place] 7.5/325) 1 tab PO Q4H PRN PRN Reason: Moderate Pain (4-6) Last Admin: 03/23/19 14:20 Dose: 1 tab Al Hydroxide/Mg Hydroxide (Maalox) 30 ml PO Q4H PRN PRN Reason: Indigestion Alprazolam (Xanax) 0.25 mg PO BIDPRN PRN PRN Reason: Anxiety Last Admin: 03/23/19 23:12 Dose: 0.25 mg Aspirin (Ecotrin) 81 mg PO DAILY [facility] Last Admin: 03/24/19 08:12 Dose: 81 mg Atorvastatin Calcium (Lipitor) 10 mg PO [facility] Bisacodyl (Dulcolax) 10 mg IN Q12H PRN PRN Reason: Constipation Calcium Carbonate (Tums) 1,000 mg PO Q4H PRN PRN Reason: Heartburn or Indigestion Dextrose/Water (Dextrose 50%) 25 gm SLOW IVP PRN PRN PRN Reason: Hypoglycemia Ezetimibe (Zetia) 10 mg PO DAILY [facility] Last Admin: 03/24/19 08:12 Dose: 10 mg Glucagon (Glucagon) 1 mg IM PRN PRN PRN Reason: Hypoglycemia Sodium Chloride (Normal Saline 0.9%) 1,000 mls @ 75 mls/hr IV .[id number] [facility] Last Admin: 03/23/19 22:56 Dose: 1,000 mls Nitroglycerin/Dextrose (Nitroglycerin 50 Mg/250 Ml Bot) 250 mls @ 0 mls/hr IVPB INF [facility]; Protocol Last Admin: 03/23/19 17:35 Dose: 250 mls Dextrose/Water (D5w) 1,000 mls @ 0 mls/hr IV .Q0M PRN PRN Reason: Hypoglycemia Insulin Glargine 10 units/ (Miscellaneous Medication) 0.1 mls @ 0 mls/hr SC QAM SHRUTHI Insulin Glargine 10 units/ (Miscellaneous Medication) 0.1 mls @ 0 mls/hr SC [facility] Last Admin: 03/24/19 08:15 Dose: 0.1 mls Insulin Human Regular (Humulin R) 0 units SC .MILD SLIDING SCALE PRN PRN Reason: Mild Correctional Scale Insulin Human Regular (Humulin R) 0 units SC .BEDTIME SLIDING SC PRN PRN Reason: Bedtime Correctional Scale Last Admin: 03/23/19 21:31 Dose: 3 unit Losartan Potassium (Cozaar) 25 mg PO DAILY [facility] Last Admin: 03/24/19 08:12 Dose: 25 mg Magnesium Hydroxide (Milk Of Magnesium) 30 ml PO Q12H PRN PRN Reason: Constipation Metoprolol Tartrate (Lopressor) 12.5 mg PO BID [facility] Last Admin: 03/23/19 21:08 Dose: 12.5 mg Morphine Sulfate (Morphine) 2 mg SLOW IVP Q1H PRN PRN Reason: Moderate Pain (4-6) Last Admin: 03/24/19 03:34 Dose: 2 mg Nitroglycerin (Nitrostat) 0.4 mg PO Q5MIN PRN PRN Reason: Chest Pain Ondansetron HCl (Zofran) 4 mg IVP Q6H PRN PRN Reason: Nausea/Vomiting Last Admin: 03/23/19 14:50 Dose: 4 mg Pantoprazole Sodium (Protonix) 40 mg PO DAILY [facility] Last Admin: 03/24/19 08:12 Dose: 40 mg Rosuvastatin Calcium (Crestor) 10 mg PO [facility] Last Admin: 03/23/19 21:07 Dose: 10 mg Senna/Docusate Sodium (Senokot S) 2 tab PO BID [facility] Last Admin: 03/24/19 08:12 Dose: 2 tab Sodium Chloride (Flush - Normal Saline) 10 ml IVF PRN PRN PRN Reason: Saline Flush Tizanidine HCl (Zanaflex) 4 mg PO TIDPRN PRN PRN Reason: Muscle Spasm Last Admin: 03/23/19 14:20 Dose: 4 mg Tramadol HCl (Ultram) 50 mg PO Q6H PRN PRN Reason: Mild Pain (1-3) Vital Signs & Weight: Vital Signs Temp Pulse Ox 03/24/19 07:20 96 03/24/19 04:00 98.1 F Weight 244 lb 11.41 oz - Quality Measures Condition: Myocardial Infarction CV meds: Beta Elías: Yes, Statin: Yes, ASA: Yes, Plavix/Effient/Brilinta: No, Anticoagulant: No - Medication Contraindications No Antithrombotic reason: Medical contraindication No Anticoagulant reason: Medical contraindication - Physical Exam General: alert & oriented x3, no apparent distress HEENT: mucus membranes moist, normocephaly Neck: supple neck, midline trachea Cardiac: regular rate and rhythm, no murmur, regular rate Lungs: clear to auscultation, no wheeze, rales, rhonchi Neuro: grossly intact, coordination normal Abdomen: active bowel sounds, soft, non-tender Skin: clear Musculoskeletal: normal range of motion, no pain - Labs Result Diagrams: 03/24/19 06:30 03/24/19 06:30 Troponin/CKMB CK-MB (CK-2) 134.7 ng/mL (0-6.6) H* 03/24/19 06:30 Troponin I 13.973 ng/mL (< 0.028) H* 03/24/19 06:30 - Telemetry Sinus rhythms and dysrhythmias: sinus rhythm - Assessment/Plan Assessment/Plan: 1. Acute lateral STEMI 2. Post op RI 3. S/P Lumbar laminectomy 4. Hx of CABG PLAN; - Continue conservative therapy. - Continue BB/ARB/Statin/low dose ASA. - No Plavix or anticoagulants due to recent lumbar procedure. - Will watch in he ICU overnight and out to telemetry floor tomorrow if he remains stable.
[2019-03-24] MEDS: Insulin Glargine 10 UNITS in Pre-Filled Syringe 1 EACH SC SCH (12:06)
[2019-03-24] MEDS: Metoprolol Tartrate 25 MG TAB PO SCH ×2 (12:28→23:01)
[2019-03-24] MEDS: HYDROcodone/Acetaminophen 7.5/325 mg Tablet PO PRN (12:57)
[2019-03-24] MEDS: ALPRAZolam 0.25 MG TAB PO PRN (12:57)
[2019-03-24 17:42] LABS: CKMB 160.8 ng/mL (0-6.6)
[2019-03-24] MEDS: Ondansetron PF 4 MG/2 ML Vial IVP PRN ×2 (18:00→23:07)
--- NOTE | 2019-03-24 18:07 | CT ---
Head CT without contrast 03/24/2019: HISTORY: Headache TECHNIQUE: Axial CT imaging at 5 mm intervals from vertex through skull base without contrast FINDINGS: Imaged paranasal sinuses and mastoid air cells are well aerated. No displaced calvarial fra cture. No intracranial hemorrhage, midline shift, mass effect, or ventricular enlargement. IMPRESSION: No acute findings.
[2019-03-24] MEDS ORDERED: Insulin Glargine 10 UNITS in Pre-Filled Syringe 1 EACH SC SCH (21:00)
[2019-03-24] MEDS ORDERED: Atorvastatin Calcium 40 MG TAB PO SCH (21:00)
[2019-03-24] MEDS: Rosuvastatin 10 MG TAB PO SCH (23:00)
[2019-03-24] MEDS: Atorvastatin Calcium 10 MG TAB PO SCH (23:01)
[2019-03-25 05:23] VITALS: BMI 34.6
[2019-03-25 05:51] LABS: #Basophils 0.1 thou/uL (0.0-0.2); #Lymphocytes 1.5 thou/uL (1.20-3.40); #Monocytes 1.6 thou/uL (0.11-0.59); #Neutrophils 15.2 thou/uL (1.40-6.50); %Basophils 0.3 % (0.0-1.0); %Eosinophils 0.2 % (0.0-10.0); %Lymphocytes 8.3 % (21.0-51.0); %Monocytes 8.6 % (0.0-10.0); %Neutrophils 82.5 % (42.0-75.0); Hemoglobin 12.4 g/dL (14.0-18.0); Mean Corpuscular HGB CONC 32.5 g/dL (32.0-36.0); Mean Corpuscular Hemoglobin 30.3 pg (27.0-31.0); Mean Corpuscular Volume 93.3 fL (78.0-98.0); Mean Platelet Volume 8.3 fL (7.4-10.4); Platelet Count 203 thou/uL (130-400); RBC Distribution Width 13.2 % (11.5-14.5); Red Blood Cell (RBC) Count 4.09 mill/uL (4.70-6.10); White Blood Cell (WBC) Count 18.4 thou/uL (4.8-10.8)
[2019-03-25 06:12] LABS: ALT (SGPT) 24 U/L (8-55); AST (SGOT) 155 U/L (5-34); Albumin 3.7 g/dL (3.4-4.8); Alkaline Phosphatase 74 U/L (40-150); Anion Gap 9 mmol/L (10-20); BUN (Urea Nitrogen) 28 mg/dL (8.4-25.7); Calc. Creatinine Clearance 64 mL/min (70-130); Carbon Dioxide 26 mmol/L (23-31); Chloride 106 mmol/L (98-107); Estimated GFR-MDRD 41; Globulin 2.4 g/dL (2.4-3.5); Glucose 144 mg/dL (80-115); Magnesium 1.8 mg/dL (1.6-2.6); Potassium 4.4 mmol/L (3.5-5.1); Protein, Total 6.1 g/dL (5.8-8.1); Sodium 137 mmol/L (136-145)
[2019-03-25 06:59] LABS: CKMB 75.1 ng/mL (0-6.6); Critical Call CKMB RESULT DECREASING
[2019-03-25] MEDS: Aspirin 81 mg Enteric Coated Tablet PO SCH (08:00)
[2019-03-25] MEDS: Losartan 25 MG TAB PO SCH (08:00)
[2019-03-25] MEDS: Metoprolol Tartrate 25 MG TAB PO SCH (08:00)
[2019-03-25] MEDS: Ezetimibe 10 MG TAB PO SCH (08:00)
[2019-03-25] MEDS: Senokot S 8.6-50 MG TAB PO SCH ×2 (08:01→20:12)
[2019-03-25] MEDS ORDERED: Promethazine HCl 25 MG/ML VIAL IM/IV PRN (08:40)
[2019-03-25] MEDS: Ondansetron PF 4 MG/2 ML Vial IVP PRN (08:42)
--- NOTE | 2019-03-25 08:45 | PRG ---
DATE OF SERVICE: 03/25/2019 SUBJECTIVE: This morning, the patient is awake, alert, and responsive. No further chest pain. OBJECTIVE: VITAL SIGNS: Saturations are 93% on room air, pulse 95, blood pressure 135/85, respirations 18. CHEST: No wheezing or crackles. CARDIAC: Normal S1 and S2. No gallops. ABDOMEN: No masses. LABORATORY DATA: Creatinine is 1.66. IMPRESSION: Acute coronary syndrome status post laminectomy, history of previous coronary artery bypass graft. PLAN: Disposition as per Cardiology. Pulmonary Critical Care will follow while in the ICU. Agree with present treatment. Job ID: [id number]
[2019-03-25] MEDS: Insulin Glargine 10 UNITS in Pre-Filled Syringe 1 EACH SC SCH (09:10)
--- NOTE | 2019-03-25 09:52 | PRG ---
DATE OF SERVICE: 03/25/2019 SUBJECTIVE: The patient is postoperative day #2, status post L3-L5 laminectomy. His case was complicated by postop acute TX, which is being followed by Cardiology. He has been treating with restart of his aspirin. He did have some increased headaches as well yesterday, which is felt to possibly be due to his nitroglycerin. A CT head was done, which was negative. The patient reports his headaches has resolved, but he is having persistent nausea and some vomiting overnight. He otherwise denies any significant back pain or leg pain. He is having no neurologic changes. OBJECTIVE: GENERAL: This morning, the patient is sitting up comfortably. No acute distress. VITAL SIGNS: Blood pressure is 135/85, heart rate is 90. BACK: Incision is clean, dry, and intact. EXTREMITIES: He has free active range of motion in all extremities. No focal motor weakness. PLAN: We will continue to monitor the patient in the ICU. I discussed the case with Dr. Kowalski, and she reports that they will continue to follow his troponin which is trended up slightly today, but would not be unusual after this event. I have added Phenergan to his regimen for treatment of his nausea. The patient may be able to go to the floor tomorrow. Job ID: [id number]
--- NOTE | 2019-03-25 12:29 | PRG ---
DATE OF SERVICE: 03/25/2019 Mr. Pacheco continues to do well. He is not having chest pain and no other cardiac symptoms and has noticed improvement in his leg since his back surgery. He is somnolent due to recent Phenergan. He was seen by Cardiology this morning. They would like to keep him in the ICU one more day, but they are reasonably satisfied with his progress. From a spinal perspective, the patient continues to do quite well and his ultimate disposition is depending on Cardiology. I discussed at length with the patient and his . Job ID: [id number]
[2019-03-25] MEDS ORDERED: Metoprolol Tartrate 50 MG TAB PO SCH (18:00)
--- NOTE | 2019-03-25 18:10 | PDOC.HOSPP ---
- Subjective Encounter Date: 03/25/19 Encounter Time: 18:09 Subjective: Patient seen and examined for med mngt. No CP. Event noted. No new complaints. - Objective Vital Signs & Weight: Vital Signs (12 hours) Temp 03/25/19 10:54 97.9 F Weight Weight 242 lb 1.081 oz Most Recent Monitor Data Heart Rate from ECG 97 NIBP 152/82 NIBP BP-Mean 105 Respiration from ECG 18 SpO2 92 I&O: 03/24/19 03/25/19 03/26/19 06:59 06:59 06:59 Intake Total 961.5 1747.5 500 Output Total 325 1465 1400 Balance 636.5 282.5 -900 Result Diagrams: 03/25/19 05:45 03/25/19 05:45 Additional Labs: Accuchecks 03/25/19 03/25/19 03/25/19 16:08 11:04 05:47 POC Glucose 106 105 129 H 03/24/19 03/24/19 23:15 18:23 POC Glucose 119 H 128 H EKG Reviewed by me: Yes (Tele SR) Hospitalist ROS - Review of Systems Respiratory: denies: cough, dry, shortness of breath, hemoptysis, SOB with excertion, pleuritic pain, sputum, wheezing, other Cardiovascular: denies: chest pain, palpitations, orthopnea, paroxysmal noc. dyspnea, edema, light headedness, other - Medication Medications: Active Medications Generic Name Dose Route Start Last Admin Trade Name Freq PRN Reason Stop Dose Admin Hydrocodone Bitart/Acetaminophen 1 tab 03/23/19 10:56 03/24/19 12:57 [place] 7.5/325 PO 1 tab Q4H PRN Administration Moderate Pain (4-6) Alprazolam 0.25 mg 03/23/19 19:51 03/24/19 12:57 Xanax PO 0.25 mg BIDPRN PRN Administration Anxiety Aspirin 81 mg 03/24/19 09:00 03/25/19 08:00 Ecotrin PO 81 mg DAILY SHRUTHI Administration Atorvastatin Calcium 10 mg 03/24/19 21:00 03/24/19 23:01 Lipitor PO 10 mg HS SHRUTHI Administration Ezetimibe 10 mg 03/24/19 09:00 03/25/19 08:00 Zetia PO 10 mg DAILY SHRUTHI Administration Insulin Human Regular 0 units 03/23/19 19:48 03/23/19 21:31 Humulin R SC 3 unit .BEDTIME SLIDING SC PRN Administration Bedtime Correctional Scale Losartan Potassium 25 mg 03/24/19 09:00 03/25/19 08:00 Cozaar PO 25 mg DAILY SHRUTHI Administration Morphine Sulfate 2 mg 03/23/19 10:56 03/24/19 18:00 Morphine SLOW IVP 2 mg Q1H PRN Administration Moderate Pain (4-6) Ondansetron HCl 4 mg 03/23/19 10:56 03/25/19 08:42 Zofran IVP 4 mg Q6H PRN Administration Nausea/Vomiting Pantoprazole Sodium 40 mg 03/24/19 09:00 03/25/19 08:00 Protonix PO 40 mg DAILY SHRTUHI Administration Promethazine HCl 12.5 mg 03/25/19 08:40 03/25/19 08:49 Phenergan IM/IV 12.5 mg Q6H PRN Administration Nausea/Vomiting Rosuvastatin Calcium 10 mg 03/23/19 21:00 03/24/19 23:00 Crestor PO 10 mg HS SHRUTHI Administration Senna/Docusate Sodium 2 tab 03/24/19 09:00 03/25/19 08:01 Senokot S PO Not Given BID SHRUTHI Tizanidine HCl 4 mg 03/23/19 10:56 03/23/19 14:20 Zanaflex PO 4 mg TIDPRN PRN Administration Muscle Spasm - Exam General Appearance: NAD Neck: no JVD Heart: RRR, no gallops Respiratory: CTAB, no rales Extremities: no edema Neurological: no new deficit Psychiatric: normal affect, A&O x 3 Hosp A/P (1) Chest pain Code(s): R07.9 - CHEST PAIN, UNSPECIFIED Status: Acute (2) STEMI (ST elevation myocardial infarction) Status: Acute (3) CAD (coronary artery disease) Code(s): I25.10 - ATHSCL HEART DISEASE OF [place] CORONARY ARTERY W/O ANG PCTRS Status: Chronic (4) DM type 2 (diabetes mellitus, type 2) Status: Chronic Qualifiers: Chronic kidney disease stage: stage 3 (moderate) (5) HLD (hyperlipidemia) Code(s): E78.5 - HYPERLIPIDEMIA, UNSPECIFIED Status: Chronic (6) HTN (hypertension) Code(s): I10 - ESSENTIAL (PRIMARY) HYPERTENSION Status: Chronic (7) Obesity (BMI 30.0-34.9) Code(s): E66.9 - OBESITY, UNSPECIFIED Status: Chronic - Plan DVT proph w/SCDs Cont ASA 81 mg Increase BB Cont ARB and Statins Cont Sliding scale AM labs Repeat troponins in AM No dual antiplatelets due to recent back surgery
[2019-03-25] MEDS ORDERED: Promethazine 25 MG TAB PO PRN (18:11)
[2019-03-25] MEDS: Rosuvastatin 10 MG TAB PO SCH (20:12)
[2019-03-25] MEDS: Atorvastatin Calcium 10 MG TAB PO SCH (20:12)
[2019-03-26] MEDS ORDERED: hydrALAZINE 20 MG/ML VIAL SLOW IVP PRN (03:14)
[2019-03-26 04:06] LABS: #Basophils 0.1 thou/uL (0.0-0.2); #Eosinphils 0.2 thou/uL (0.0-0.7); #Monocytes 1.3 thou/uL (0.11-0.59); #Neutrophils 14.5 thou/uL (1.40-6.50); %Basophils 0.4 % (0.0-1.0); %Eosinophils 1.3 % (0.0-10.0); %Lymphocytes 11.1 % (21.0-51.0); %Monocytes 7.4 % (0.0-10.0); %Neutrophils 79.9 % (42.0-75.0); Hemoglobin 13.1 g/dL (14.0-18.0); Mean Corpuscular Hemoglobin 30.6 pg (27.0-31.0); Mean Corpuscular Volume 92.8 fL (78.0-98.0); Mean Platelet Volume 8.2 fL (7.4-10.4); Platelet Count 192 thou/uL (130-400); Red Blood Cell (RBC) Count 4.29 mill/uL (4.70-6.10); White Blood Cell (WBC) Count 18.2 thou/uL (4.8-10.8)
[2019-03-26 04:31] LABS: ALT (SGPT) 21 U/L (8-55); AST (SGOT) 93 U/L (5-34); Albumin 3.5 g/dL (3.4-4.8); Alkaline Phosphatase 90 U/L (40-150); Anion Gap 11 mmol/L (10-20); BUN (Urea Nitrogen) 22 mg/dL (8.4-25.7); Bilirubin, Total 2.1 mg/dL (0.2-1.2); Calc. Creatinine Clearance 77 mL/min (70-130); Calcium 9.3 mg/dL (7.8-10.44); Carbon Dioxide 25 mmol/L (23-31); Chloride 105 mmol/L (98-107); Estimated GFR-MDRD 51; Globulin 2.9 g/dL (2.4-3.5); Glucose 105 mg/dL (80-115); Protein, Total 6.4 g/dL (5.8-8.1); Sodium 137 mmol/L (136-145)
[2019-03-26 04:51] LABS: Critical Call Chem Troponin I RESULT DECREASING
[2019-03-26 05:10] LABS: CKMB 14.4 ng/mL (0-6.6); Critical Call CKMB RESULT DECREASING
--- NOTE | 2019-03-26 07:34 | ULT ---
EXAM: Carotid Doppler PROVIDED CLINICAL HISTORY: Carotid bruit COMPARISON: None FINDINGS: Grayscale and color Doppler sonography with spectral analysis was performed of the extracranial carot id system bilaterally. Bilateral calcified atherosclerotic plaque involving the proximal internal carotid arteries. There is no definite evidence for a hemodynamically significant internal carotid ar abena stenosis by peak systolic velocity and ratio criteria. Nonspecific mild elevation of peak systolic velocity within the proximal and distal right internal carotid artery to 130 cm/s. Antegrade flow is seen in the vertebral arteries. IMPRESSION: Nonspecific mild elevation of peak systolic velocity within the right internal carotid artery without corresponding elevation of ICA to CCA ratio.
[2019-03-26] MEDS: Aspirin 81 mg Enteric Coated Tablet PO SCH (08:16)
[2019-03-26] MEDS: Losartan 25 MG TAB PO SCH (08:17)
[2019-03-26] MEDS: Senokot S 8.6-50 MG TAB PO SCH ×2 (08:17→19:52)
[2019-03-26] MEDS: Ezetimibe 10 MG TAB PO SCH (08:17)
--- NOTE | 2019-03-26 08:27 | PDOC.HOSPP ---
- Subjective Encounter Date: 03/26/19 Encounter Time: 08:26 Subjective: Patient seen and examined for med mngt. No CP or SOB. Sitting on EOB. No new complaints. No overnight events - Objective Vital Signs & Weight: Vital Signs (12 hours) Temp Pulse BP Pulse Ox 03/26/19 07:16 93 L 03/26/19 03:18 85 170/105 H 03/26/19 03:00 98.0 F 03/25/19 23:00 98.8 F Weight Weight 239 lb 10.279 oz Most Recent Monitor Data Heart Rate from ECG 99 NIBP 161/74 NIBP BP-Mean 103 Respiration from ECG 19 SpO2 95 I&O: 03/25/19 03/26/19 03/27/19 06:59 06:59 06:59 Intake Total 1747.5 550 50 Output Total 1465 2350 0 Balance 282.5 -1800 50 Result Diagrams: 03/26/19 03:54 03/26/19 03:54 Additional Labs: Accuchecks 03/25/19 03/25/19 03/25/19 20:13 16:08 11:04 POC Glucose 108 106 105 EKG Reviewed by me: Yes (Tele SR) Hospitalist ROS - Review of Systems Respiratory: denies: cough, dry, shortness of breath, hemoptysis, SOB with excertion, pleuritic pain, sputum, wheezing, other Cardiovascular: denies: chest pain, palpitations, orthopnea, paroxysmal noc. dyspnea, edema, light headedness, other - Medication Medications: Active Medications Generic Name Dose Route Start Last Admin Trade Name Freq PRN Reason Stop Dose Admin Hydrocodone Bitart/Acetaminophen 1 tab 03/23/19 10:56 03/24/19 12:57 [place] 7.5/325 PO 1 tab Q4H PRN Administration Moderate Pain (4-6) Alprazolam 0.25 mg 03/23/19 19:51 03/24/19 12:57 Xanax PO 0.25 mg BIDPRN PRN Administration Anxiety Aspirin 81 mg 03/24/19 09:00 03/26/19 08:16 Ecotrin PO 81 mg DAILY SHRUTHI Administration Atorvastatin Calcium 10 mg 03/24/19 21:00 03/25/19 20:12 Lipitor PO 10 mg HS SHRUTHI Administration Ezetimibe 10 mg 03/24/19 09:00 03/26/19 08:17 Zetia PO 10 mg DAILY SHRUTHI Administration Hydralazine HCl 10 mg 03/26/19 03:14 03/26/19 03:18 Apresoline SLOW IVP 10 mg Q4H PRN Administration SBP > 160, DBP > 100 Insulin Human Regular 0 units 03/23/19 19:48 03/23/19 21:31 Humulin R SC 3 unit .BEDTIME SLIDING SC PRN Administration Bedtime Correctional Scale Losartan Potassium 25 mg 03/24/19 09:00 03/26/19 08:17 Cozaar PO 25 mg DAILY SHRUTHI Administration Morphine Sulfate 2 mg 03/23/19 10:56 03/24/19 18:00 Morphine SLOW IVP 2 mg Q1H PRN Administration Moderate Pain (4-6) Ondansetron HCl 4 mg 03/23/19 10:56 03/25/19 08:42 Zofran IVP 4 mg Q6H PRN Administration Nausea/Vomiting Pantoprazole Sodium 40 mg 03/24/19 09:00 03/26/19 08:17 Protonix PO 40 mg DAILY SHRUTHI Administration Promethazine HCl 12.5 mg 03/25/19 08:40 03/25/19 08:49 Phenergan IM/IV 12.5 mg Q6H PRN Administration Nausea/Vomiting Rosuvastatin Calcium 10 mg 03/23/19 21:00 03/25/19 20:12 Crestor PO 10 mg HS SHRUTHI Administration Senna/Docusate Sodium 2 tab 03/24/19 09:00 03/26/19 08:17 Senokot S PO 2 tab BID SHRUTHI Administration Tizanidine HCl 4 mg 03/23/19 10:56 03/23/19 14:20 Zanaflex PO 4 mg TIDPRN PRN Administration Muscle Spasm - Exam General Appearance: NAD Neck: supple, no JVD Heart: RRR, no rubs Respiratory: CTAB, no rales Gastrointestinal: soft, non-tender, normal bowel sounds Extremities: no edema Hosp A/P (1) Chest pain Code(s): R07.9 - CHEST PAIN, UNSPECIFIED Status: Acute (2) STEMI (ST elevation myocardial infarction) Status: Acute (3) CAD (coronary artery disease) Code(s): I25.10 - ATHSCL HEART DISEASE OF [place] CORONARY ARTERY W/O ANG PCTRS Status: Chronic (4) DM type 2 (diabetes mellitus, type 2) Status: Chronic Qualifiers: Chronic kidney disease stage: stage 3 (moderate) (5) HLD (hyperlipidemia) Code(s): E78.5 - HYPERLIPIDEMIA, UNSPECIFIED Status: Chronic (6) HTN (hypertension) Code(s): I10 - ESSENTIAL (PRIMARY) HYPERTENSION Status: Chronic (7) Obesity (BMI 30.0-34.9) Code(s): E66.9 - OBESITY, UNSPECIFIED Status: Chronic (8) Abnormal LFTs Code(s): R94.5 - ABNORMAL RESULTS OF LIVER FUNCTION STUDIES Status: Acute - Plan PT/OT, DVT proph w/SCDs Cont ASA 81 mg Increase Metoprolol to 100 mg BID Cont Losartan Cont Statins Cont Sliding scale Troponins improving No dual antiplatelets due to recent back surgery AM labs Recheck LFTS in AM
[2019-03-26] MEDS ORDERED: Metoprolol Tartrate 50 MG TAB PO SCH (09:00)
--- NOTE | 2019-03-26 09:25 | PRG ---
DATE OF SERVICE: 03/26/2019 SUBJECTIVE: The patient appears to be doing much better today. He has had resolution of his headaches and much improvement in his nausea. He is sitting up at the side of bed and is eating his breakfast without any difficulty. His troponin continues to trend down this morning and he is having no chest pain. OBJECTIVE: GENERAL: On exam this morning, the patient is awake, alert, and in no acute distress. EXTREMITIES: He has free active range of motion of all extremities. No focal motor weakness. His incision is clean, dry, and intact. PLAN: The patient is doing well from a neurosurgical standpoint. He also seems to be continuing to improve from his recent postop AR. His Cardiology feels appropriately. We feel that he could likely go to the telemetry floor later today. Job ID: [id number]
[2019-03-26] MEDS: Polyethylene Glycol 3350 17 GM Packet PO SCH (09:28)
[2019-03-26] MEDS: Metoprolol Tartrate 100 MG TAB PO SCH ×2 (09:29→19:52)
--- NOTE | 2019-03-26 09:33 | PRG ---
DATE OF SERVICE: 03/26/2019 SUBJECTIVE: Mr. Pacheco this morning is awake and responsive. No chest pain or shortness of breath. OBJECTIVE: VITAL SIGNS: Saturation is 98% on room air, blood pressure 161/73, pulse 80, and respirations 18. CHEST: No wheezing. CARDIAC: Normal S1, S2. No gallops. ABDOMEN: Soft. LABORATORY DATA: Creatinine 1.38. Troponin is markedly elevated. IMPRESSION: 1. Status post lumbar laminectomy. 2. Coronary artery disease. 3. Probably, sleep apnea. Continue cardiac care. He can be transferred out of the ICU as per Cardiology. Pulmonary will follow while in the ICU. Job ID: [id number]
[2019-03-26] MEDS: Atorvastatin Calcium 10 MG TAB PO SCH (19:52)
[2019-03-26] MEDS: Rosuvastatin 10 MG TAB PO SCH (19:52)
[2019-03-27 06:10] LABS: ALT (SGPT) 58 U/L (8-55); AST (SGOT) 99 U/L (5-34); Albumin 3.1 g/dL (3.4-4.8); Alkaline Phosphatase 126 U/L (40-150); Anion Gap 12 mmol/L (10-20); BUN (Urea Nitrogen) 24 mg/dL (8.4-25.7); Bilirubin, Total 2.1 mg/dL (0.2-1.2); Calc. Creatinine Clearance 78 mL/min (70-130); Calcium 8.8 mg/dL (7.8-10.44); Carbon Dioxide 20 mmol/L (23-31); Chloride 107 mmol/L (98-107); Estimated GFR-MDRD 52; Globulin 3.3 g/dL (2.4-3.5); Glucose 115 mg/dL (80-115); Magnesium 1.7 mg/dL (1.6-2.6); Potassium 4.5 mmol/L (3.5-5.1); Protein, Total 6.4 g/dL (5.8-8.1); Sodium 134 mmol/L (136-145)
[2019-03-27 06:32] LABS: #Basophils 0.1 thou/uL (0.0-0.2); #Eosinphils 0.7 thou/uL (0.0-0.7); #Lymphocytes 1.7 thou/uL (1.20-3.40); #Monocytes 1.2 thou/uL (0.11-0.59); %Basophils 0.4 % (0.0-1.0); %Eosinophils 4.6 % (0.0-10.0); %Lymphocytes 11.1 % (21.0-51.0); %Monocytes 7.5 % (0.0-10.0); %Neutrophils 76.4 % (42.0-75.0); Hemoglobin 12.3 g/dL (14.0-18.0); Mean Corpuscular HGB CONC 32.6 g/dL (32.0-36.0); Mean Corpuscular Hemoglobin 30.1 pg (27.0-31.0); Mean Corpuscular Volume 92.2 fL (78.0-98.0); Mean Platelet Volume 8.8 fL (7.4-10.4); Platelet Count 211 thou/uL (130-400); RBC Distribution Width 12.8 % (11.5-14.5); Red Blood Cell (RBC) Count 4.08 mill/uL (4.70-6.10); White Blood Cell (WBC) Count 15.7 thou/uL (4.8-10.8)
[2019-03-27] MEDS: Ezetimibe 10 MG TAB PO SCH (08:19)
[2019-03-27] MEDS: Senokot S 8.6-50 MG TAB PO SCH (08:19)
[2019-03-27] MEDS: Aspirin 81 mg Enteric Coated Tablet PO SCH (08:19)
[2019-03-27] MEDS: Losartan 25 MG TAB PO SCH (08:20)
[2019-03-27] MEDS: Polyethylene Glycol 3350 17 GM Packet PO SCH (08:20)
[2019-03-27] MEDS: Metoprolol Tartrate 100 MG TAB PO SCH (08:20)
--- NOTE | 2019-03-27 09:57 | PRG ---
DATE OF SERVICE: 03/27/2019 This is Issac Kim PA-C dictating a report for Willard Monsalve MD. This is a postoperative note. Mr. Pacheco is now postoperative day #4 having undergone multilevel lumbar laminectomies for lumbar spinal stenosis. The patient did experience an acute IA immediately postoperatively, but appears to be improving in this regard. He is on 81 mg of aspirin and has no reports of chest pain, left arm pain, or even jaw pain. He also had some headache, which was believed to be related to nitroglycerin administration and this has since resolved. The patient also denies any further nausea or vomiting. Regard to his back surgery, he says that his legs feel much private tutor and not as heavy when he is walking. He does, however, note that when he is weightbearing, he has fairly significant bilateral hip and groin pain, but this overall is slowly improving. Main issue now is disposition. The patient's vitals have remained relatively stable with slight hypertension. The patient does have this at baseline. He has been walking quite a bit and really does not qualify for inpatient rehab nor does he wish to go. I think from neurosurgical standpoint, the patient is doing well. I should note that he had a brain CT that was negative for acute intracranial abnormality secondary to his headaches, and again this was believed to be related to nitroglycerin administration. He also had a carotid Doppler that did not show significant carotid artery stenosis. It is fine to continue with 81 mg aspirin, and we will likely allow resumption of Plavix 10 days postoperatively. We hope to send the patient home actually today if we can get clearance from Cardiology, but we will defer to them in regard to what the patient would best qualify for whether be home or some kind of inpatient cardiac rehab. Nonetheless, we will follow up and hope for either dismissal today or tomorrow. Job ID: [id number]
[2019-03-27 11:45] VITALS: TEMP 98.4
--- NOTE | 2019-03-27 11:48 | PDOC.CPN ---
- Subjective Date: 03/27/19 Time: 11:46 Interval history: He is doing well. No angina. No other issues. - Review of Systems General: denies: fever/chills, weight/appetite/sleep changes, night sweats, fatigue Respiratory: denies: cough, congestion, shortness of breath, exercise intolerance Cardiovascular: denies: chest pain, palpitation, edema, paroxysmal nocturnal dyspnea, orthopnea Gastrointestinal: denies: nausea, vomiting, diarrhea, constipation, abd pain, GI bleeding Musculoskeletal: reports: tenderness. denies: pain, stiffness, swelling, arthritis/arthralgias Neurological: denies: numbness, syncope, seizure, weakness - Objective Allergies/Adverse Reactions: Allergies Allergy/AdvReac Type Severity Reaction Status Date / Time No Known Allergies Allergy Verified 03/23/19 13:06 Visit Medications: Current Medications Acetaminophen (Tylenol) 650 mg PO Q4H PRN PRN Reason: Headache/Fever/Mild Pain (1-3) Last Admin: 03/27/19 10:14 Dose: 650 mg Acetaminophen/Codeine Phosphate (Tylenol #3) 1 tab PO Q3H PRN PRN Reason: Mild Pain (1-3) Hydrocodone Bitart/Acetaminophen ([place] 7.5/325) 1 tab PO Q4H PRN PRN Reason: Moderate Pain (4-6) Last Admin: 03/24/19 12:57 Dose: 1 tab Al Hydroxide/Mg Hydroxide (Maalox) 30 ml PO Q4H PRN PRN Reason: Indigestion Alprazolam (Xanax) 0.25 mg PO BIDPRN PRN PRN Reason: Anxiety Last Admin: 03/24/19 12:57 Dose: 0.25 mg Aspirin (Ecotrin) 81 mg PO DAILY [facility] Last Admin: 03/27/19 08:19 Dose: 81 mg Atorvastatin Calcium (Lipitor) 10 mg PO HS [facility] Last Admin: 03/26/19 19:52 Dose: 10 mg Bisacodyl (Dulcolax) 10 mg MO Q12H PRN PRN Reason: Constipation Calcium Carbonate (Tums) 1,000 mg PO Q4H PRN PRN Reason: Heartburn or Indigestion Dextrose/Water (Dextrose 50%) 25 gm SLOW IVP PRN PRN PRN Reason: Hypoglycemia Ezetimibe (Zetia) 10 mg PO DAILY [facility] Last Admin: 03/27/19 08:19 Dose: 10 mg Glucagon (Glucagon) 1 mg IM PRN PRN PRN Reason: Hypoglycemia Hydralazine HCl (Apresoline) 10 mg SLOW IVP Q4H PRN PRN Reason: SBP > 160, DBP > 100 Last Admin: 03/26/19 03:18 Dose: 10 mg Dextrose/Water (D5w) 1,000 mls @ 0 mls/hr IV .Q0M PRN PRN Reason: Hypoglycemia Insulin Human Regular (Humulin R) 0 units SC .MILD SLIDING SCALE PRN PRN Reason: Mild Correctional Scale Insulin Human Regular (Humulin R) 0 units SC .BEDTIME SLIDING SC PRN PRN Reason: Bedtime Correctional Scale Last Admin: 03/23/19 21:31 Dose: 3 unit Losartan Potassium (Cozaar) 25 mg PO DAILY [facility] Last Admin: 03/27/19 08:20 Dose: 25 mg Magnesium Hydroxide (Milk Of Magnesium) 30 ml PO Q12H PRN PRN Reason: Constipation Metoprolol Tartrate (Lopressor) 100 mg PO BID [facility] Last Admin: 03/27/19 08:20 Dose: 100 mg Morphine Sulfate (Morphine) 2 mg SLOW IVP Q1H PRN PRN Reason: Moderate Pain (4-6) Last Admin: 03/24/19 18:00 Dose: 2 mg Nitroglycerin (Nitrostat) 0.4 mg PO Q5MIN PRN PRN Reason: Chest Pain Ondansetron HCl (Zofran) 4 mg IVP Q6H PRN PRN Reason: Nausea/Vomiting Last Admin: 03/25/19 08:42 Dose: 4 mg Pantoprazole Sodium (Protonix) 40 mg PO DAILY [facility] Last Admin: 03/27/19 08:20 Dose: 40 mg Polyethylene Glycol (Miralax) 17 gm PO DAILY [facility] Last Admin: 03/27/19 08:20 Dose: 17 gm Promethazine HCl (Phenergan) 12.5 mg IM/IV Q6H PRN PRN Reason: Nausea/Vomiting Last Admin: 03/25/19 08:49 Dose: 12.5 mg Promethazine HCl (Phenergan) 25 mg PO Q4H PRN PRN Reason: Nausea Rosuvastatin Calcium (Crestor) 10 mg PO [facility] Last Admin: 09/22/19 19:52 Dose: 10 mg Senna/Docusate Sodium (Senokot S) 2 tab PO BID SHRUTHI Last Admin: 03/27/19 08:19 Dose: 2 tab Sodium Chloride (Flush - Normal Saline) 10 ml IVF PRN PRN PRN Reason: Saline Flush Last Admin: 03/27/19 08:19 Dose: 10 ml Tizanidine HCl (Zanaflex) 4 mg PO TIDPRN PRN PRN Reason: Muscle Spasm Last Admin: 03/23/19 14:20 Dose: 4 mg Tramadol HCl (Ultram) 50 mg PO Q6H PRN PRN Reason: Mild Pain (1-3) Vital Signs & Weight: Vital Signs Temp Pulse Resp BP Pulse Ox 03/27/19 11:44 98.4 F 71 20 145/69 H 97 03/27/19 08:25 94 L 03/27/19 07:35 98.5 F 80 20 178/81 H 94 L 03/27/19 04:00 99.3 F 77 18 139/82 95 Weight 254 lb 5 oz - Quality Measures Condition: Myocardial Infarction CV meds: Beta Elías: Yes, QUAN/ARB: Yes, Statin: Yes, ASA: Yes, Plavix/Effient/ Brilinta: No, Anticoagulant: No - Medication Contraindications No Antithrombotic reason: Medical contraindication No Anticoagulant reason: Medical contraindication - Physical Exam General: alert & oriented x3, no apparent distress HEENT: mucus membranes moist, normocephaly Neck: supple neck, midline trachea Cardiac: regular rate and rhythm, no murmur Lungs: clear to auscultation, no wheeze, rales, rhonchi Neuro: grossly intact, coordination normal Abdomen: active bowel sounds, soft, non-tender Skin: clear Musculoskeletal: normal range of motion - Labs Result Diagrams: 03/27/19 06:23 03/27/19 05:37 Troponin/CKMB CK-MB (CK-2) 14.4 ng/mL (0-6.6) H* 03/26/19 03:54 Troponin I 67.082 ng/mL (< 0.028) H* 03/26/19 03:54 - Telemetry Sinus rhythms and dysrhythmias: sinus rhythm - Assessment/Plan Assessment/Plan: 1. Acute inferolateral STEMI 2. Post op OR 3. S/P Lumbar laminectomy 4. Hx of CABG PLAN: - Continue conservative therapy. - Continue BB/ARB/Statin/low dose ASA. - Per neurosurgery may start Plavix in 10 days. - EF on echo today at 40-45% with inferior and inferolateral akinesis. - No major arrhythmias. - May discharge today. - Follow up in the office in 4 weeks.
--- NOTE | 2019-03-27 12:38 | PDOC.HOSPP ---
- Subjective Encounter Date: 03/27/19 Encounter Time: 11:30 Subjective: Patient seen and examined for med mngt. No CP or SOB. No new complaints. No overnight events - Objective Vital Signs & Weight: Vital Signs (12 hours) Temp Pulse Resp BP Pulse Ox 03/27/19 11:44 98.4 F 71 20 145/69 H 97 03/27/19 08:25 94 L 03/27/19 07:35 98.5 F 80 20 178/81 H 94 L 03/27/19 04:00 99.3 F 77 18 139/82 95 Weight Weight 254 lb 5 oz Most Recent Monitor Data Heart Rate from ECG 79 NIBP 177/98 NIBP BP-Mean 124 Respiration from ECG 21 SpO2 93 I&O: 03/26/19 03/27/19 03/28/19 06:59 06:59 06:59 Intake Total 550 830 Output Total 2350 950 Balance -1800 -120 Result Diagrams: 03/27/19 06:23 03/27/19 05:37 Additional Labs: Accuchecks 03/27/19 03/27/19 03/26/19 10:56 05:44 20:39 POC Glucose 108 113 H 130 H 03/26/19 17:47 POC Glucose 95 EKG Reviewed by me: Yes (Tele SR) Hospitalist ROS - Review of Systems Respiratory: denies: cough, dry, shortness of breath, hemoptysis, SOB with excertion, pleuritic pain, sputum, wheezing, other Cardiovascular: denies: chest pain, palpitations, orthopnea, paroxysmal noc. dyspnea, edema, light headedness, other Gastrointestinal: denies: nausea, vomiting, abdominal pain, diarrhea, constipation, melena, hematochezia, other - Medication Medications: Active Medications Generic Name Dose Route Start Last Admin Trade Name Freq PRN Reason Stop Dose Admin Acetaminophen 650 mg 03/23/19 10:56 03/27/19 10:14 Tylenol PO 650 mg Q4H PRN Administration Headache/Fever/Mild Pain (1-3) Hydrocodone Bitart/Acetaminophen 1 tab 03/23/19 10:56 03/24/19 12:57 [place] 7.5/325 PO 1 tab Q4H PRN Administration Moderate Pain (4-6) Alprazolam 0.25 mg 03/23/19 19:51 03/24/19 12:57 Xanax PO 0.25 mg BIDPRN PRN Administration Anxiety Aspirin 81 mg 03/24/19 09:00 03/27/19 08:19 Ecotrin PO 81 mg DAILY SHRUTHI Administration Ezetimibe 10 mg 03/24/19 09:00 03/27/19 08:19 Zetia PO 10 mg DAILY SHRUTHI Administration Hydralazine HCl 10 mg 03/26/19 03:14 03/26/19 03:18 Apresoline SLOW IVP 10 mg Q4H PRN Administration SBP > 160, DBP > 100 Insulin Human Regular 0 units 03/23/19 19:48 03/23/19 21:31 Humulin R SC 3 unit .BEDTIME SLIDING SC PRN Administration Bedtime Correctional Scale Losartan Potassium 25 mg 03/24/19 09:00 03/27/19 08:20 Cozaar PO 25 mg DAILY SHRUTHI Administration Metoprolol Tartrate 100 mg 03/26/19 09:00 03/27/19 08:20 Lopressor PO 100 mg BID SHRUTHI Administration Morphine Sulfate 2 mg 03/23/19 10:56 03/24/19 18:00 Morphine SLOW IVP 2 mg Q1H PRN Administration Moderate Pain (4-6) Ondansetron HCl 4 mg 03/23/19 10:56 03/25/19 08:42 Zofran IVP 4 mg Q6H PRN Administration Nausea/Vomiting Pantoprazole Sodium 40 mg 03/24/19 09:00 03/27/19 08:20 Protonix PO 40 mg DAILY SHRUTHI Administration Polyethylene Glycol 17 gm 03/26/19 09:00 03/27/19 08:20 Miralax PO 17 gm DAILY SHRUTHI Administration Promethazine HCl 12.5 mg 03/25/19 08:40 03/25/19 08:49 Phenergan IM/IV 12.5 mg Q6H PRN Administration Nausea/Vomiting Rosuvastatin Calcium 10 mg 03/23/19 21:00 03/26/19 19:52 Crestor PO 10 mg HS SHRUTHI Administration Senna/Docusate Sodium 2 tab 03/24/19 09:00 03/27/19 08:19 Senokot S PO 2 tab BID SHRUTHI Administration Sodium Chloride 10 ml 03/23/19 10:56 03/27/19 08:19 Flush - Normal Saline IVF 10 ml PRN PRN Administration Saline Flush Tizanidine HCl 4 mg 03/23/19 10:56 03/23/19 14:20 Zanaflex PO 4 mg TIDPRN PRN Administration Muscle Spasm - Exam General Appearance: NAD Neck: no JVD Heart: RRR, no rubs Respiratory: CTAB, no rales Gastrointestinal: soft, non-tender, normal bowel sounds Extremities: no edema Hosp A/P (1) Chest pain Code(s): R07.9 - CHEST PAIN, UNSPECIFIED Status: Acute (2) STEMI (ST elevation myocardial infarction) Status: Acute (3) CAD (coronary artery disease) Code(s): I25.10 - ATHSCL HEART DISEASE OF [place] CORONARY ARTERY W/O ANG PCTRS Status: Chronic (4) DM type 2 (diabetes mellitus, type 2) Status: Chronic Qualifiers: Chronic kidney disease stage: stage 3 (moderate) (5) HLD (hyperlipidemia) Code(s): E78.5 - HYPERLIPIDEMIA, UNSPECIFIED Status: Chronic (6) HTN (hypertension) Code(s): I10 - ESSENTIAL (PRIMARY) HYPERTENSION Status: Chronic (7) Obesity (BMI 30.0-34.9) Code(s): E66.9 - OBESITY, UNSPECIFIED Status: Chronic (8) Abnormal LFTs Code(s): R94.5 - ABNORMAL RESULTS OF LIVER FUNCTION STUDIES Status: Acute - Plan Cont ASA 81 mg Cont Metoprolol to 100 mg BID Cont Losartan Hold Statins due to Abn LFTS - Will repeat LFTS next week No dual antiplatelets due to recent back surgery
[2019-03-27 16:24] VITALS: BP 140/80
--- NOTE | 2019-03-27 18:27 | PDOC.HOSPP ---
- Subjective Encounter Date: 03/27/19 Encounter Time: 11:30 Subjective: Patient seen and examined for med mngt. No CP or SOB. No new complaints. No overnight events - Objective Vital Signs & Weight: Vital Signs (12 hours) Temp Pulse Resp BP Pulse Ox 03/27/19 16:00 75 140/80 03/27/19 11:44 98.4 F 71 20 145/69 H 97 03/27/19 08:25 94 L 03/27/19 07:35 98.5 F 80 20 178/81 H 94 L Weight Weight 254 lb 5 oz Most Recent Monitor Data Heart Rate from ECG 79 NIBP 177/98 NIBP BP-Mean 124 Respiration from ECG 21 SpO2 93 I&O: 03/26/19 03/27/19 03/28/19 06:59 06:59 06:59 Intake Total 550 830 Output Total 2350 950 Balance -1800 -120 Result Diagrams: 03/27/19 06:23 03/27/19 05:37 Additional Labs: Accuchecks 03/27/19 03/27/19 03/26/19 10:56 05:44 20:39 POC Glucose 108 113 H 130 H 03/26/19 17:47 POC Glucose 95 EKG Reviewed by me: Yes (Tele SR) Hospitalist ROS - Review of Systems Respiratory: denies: cough, dry, shortness of breath, hemoptysis, SOB with excertion, pleuritic pain, sputum, wheezing, other Cardiovascular: denies: chest pain, palpitations, orthopnea, paroxysmal noc. dyspnea, edema, light headedness, other Gastrointestinal: denies: nausea, vomiting, abdominal pain, diarrhea, constipation, melena, hematochezia, other - Exam General Appearance: NAD Neck: no JVD Heart: RRR, no gallops Respiratory: CTAB, no rales Gastrointestinal: soft, non-tender, normal bowel sounds Extremities: no edema Hosp A/P (1) Chest pain Code(s): R07.9 - CHEST PAIN, UNSPECIFIED Status: Acute (2) STEMI (ST elevation myocardial infarction) Status: Acute (3) CAD (coronary artery disease) Code(s): I25.10 - ATHSCL HEART DISEASE OF [place] CORONARY ARTERY W/O ANG PCTRS Status: Chronic (4) DM type 2 (diabetes mellitus, type 2) Status: Chronic Qualifiers: Chronic kidney disease stage: stage 3 (moderate) (5) HLD (hyperlipidemia) Code(s): E78.5 - HYPERLIPIDEMIA, UNSPECIFIED Status: Chronic (6) HTN (hypertension) Code(s): I10 - ESSENTIAL (PRIMARY) HYPERTENSION Status: Chronic (7) Obesity (BMI 30.0-34.9) Code(s): E66.9 - OBESITY, UNSPECIFIED Status: Chronic (8) Abnormal LFTs Code(s): R94.5 - ABNORMAL RESULTS OF LIVER FUNCTION STUDIES Status: Acute - Plan Cont ASA 81 mg Cont Metoprolol to 100 mg BID Cont Losartan - dose increased to 50 mg daily Statins on hold Will repeat LFTS next week No dual antiplatelets due to recent back surgery Carotid USG - No hemodynamically significant stenosis - Family advised to f/u with PCP regarding increased velocity in R ICA
--- NOTE | 2019-03-29 04:51 | PQF ---
JEANINE OCONNOR FERNANDO [id number] CLINICAL DOCUMENTATION CLARIFICATION FORM: POST DISCHARGE Addendum to original discharge summary date: ____ Late entry note date: __ DATE:03-29-2019 ATTN:Sabino Corea Please exercise your independent, professional judgment in responding to the clarification form. Clinical indicators are provided on the bottom of this form for your review Please exercise your independent, professional judgment in responding to the clarification form. Clinical indicators are provided on the bottom of this form for your review Can you please specify if the patient Myocardial Infarction is a complication of laminectomy procedure? Please check appropriate box(s): [ x ] Myocardial Infarction is a complication of laminectomy procedure [ ] Myocardial Infarction is not a complication of laminectomy procedure [ ] Other diagnosis please specify: [ ] Unable to determine CLINICAL INDICATORS: Consult by Dr Rader, p1 03/23-He started having bradycardia and EKG was ordered Consult by Dr Rader, p1 03/23-Eventually started having neck pain and left shoulder pain, so repeat EKG was done and it showed lateral ST elevations suggestive of an acute lateral STEMI PN p1 03/24-He yesterday again underwent uneventful lumbar laminectomy and whrn taken up to the floor, he had episode of bradycardia PN p1 03/25-His case was complicated by postop acute MO PN p1 03/27-Postop day #4, the pt did experience an acute MO immediately postoperatively RISK FACTORS: Consult by Dr Rader, p1 03/23-68 [address] old Consult [address] Rader, p1 03/23-CAD s/p CABG Consult by Dr Rader, p1 03/23-Hypertension Consult by Dr Rader, p2 03/23-Acute Lateral ST-Elevation myocardial infarction Consult by Dr Rader, p2 03/23-Postoperative myocardial infarction Consult by Dr Rader, p2 03/23-Status post lumbar laminectomy TREATMENT: Consult by Dr Rader-Cardiology Consult Consult by Dr Rader, p1 03/23-Repeat EKG 03/23/19-Aspirin 81mg PO daily 03/23/19-Nitroglycerin 50mg/250 ml BOT 250ml IVPB (This form is maintained as a part of the permanent medical record) 2014 [employer] All Rights Reserved Whit [email or web address] [not provided] MTDD
== END 2019-03-27 16:07 | disposition home or self-care (01) | DRG 515 ==
LOC: SDC 06:08 → OBSVTOIN 13:11 → SJJU 13:11 → CCU 17:03 → 2NO 03-26 12:40
PROVIDERS: ADMIT Surgery; ATTEND Surgery
PROC: 01NB0ZZ Release Lumbar Nerve, Open Approach (ICD-10-PCS; principal; 2019-03-23)
DX: M48.062 Spinal stenosis, lumbar region with neurogenic claudication (principal); I21.29 ST elevation (STEMI) myocardial infarction involving other sites; I97.191 Other postprocedural cardiac functional disturbances following other surgery; M54.16 Radiculopathy, lumbar region; I25.10 Atherosclerotic heart disease of native coronary artery without angina pectoris; E78.5 Hyperlipidemia, unspecified; N40.0 Benign prostatic hyperplasia without lower urinary tract symptoms; E11.22 Type 2 diabetes mellitus with diabetic chronic kidney disease; N18.3 Chronic kidney disease, stage 3 (moderate); E66.01 Morbid (severe) obesity due to excess calories; R94.5 Abnormal results of liver function studies; I12.9 Hypertensive chronic kidney disease with stage 1 through stage 4 chronic kidney disease, or unspecified chronic kidney disease; R00.1 Bradycardia, unspecified; E66.9 Obesity, unspecified; Z68.36 Body mass index [BMI] 36.0-36.9, adult; Z98.1 Arthrodesis status; Z79.899 Other long term (current) drug therapy; Z79.84 Long term (current) use of oral hypoglycemic drugs; Z87.891 Personal history of nicotine dependence; Z95.1 Presence of aortocoronary bypass graft; Z79.02 Long term (current) use of antithrombotics/antiplatelets; Z95.5 Presence of coronary angioplasty implant and graft
CPT/HCPCS: 36415; 36416; 70450; 71045; 76000; 80048; 80053; 80061; 82553; 83735; 83880; 84100; 84443; 84484; 85025; 85610; 85730; 93005; 93010; 93306; 93798; 93880; 94760; J0360; J0690; J1100; J1170; J1815; J2001; J2270; J2405; J2550; J2704; J2765; J3010; J3370; J3490

== ENCOUNTER 2019-04-07 16:02 | Inpatient (IN) | payer OTHER ==
[2019-04-07 16:15] LABS: #Basophils 0.1 thou/uL (0.0-0.2); #Eosinphils 0.9 thou/uL (0.0-0.7); #Lymphocytes 2.9 thou/uL (1.20-3.40); #Monocytes 0.8 thou/uL (0.11-0.59); %Basophils 0.9 % (0.0-1.0); %Eosinophils 6.8 % (0.0-10.0); %Monocytes 5.9 % (0.0-10.0); %Neutrophils 63.3 % (42.0-75.0); Hemoglobin 13.4 g/dL (14.0-18.0); Mean Corpuscular HGB CONC 32.3 g/dL (32.0-36.0); Mean Corpuscular Hemoglobin 30.1 pg (27.0-31.0); Mean Corpuscular Volume 93.4 fL (78.0-98.0); Mean Platelet Volume 8.1 fL (7.4-10.4); Platelet Count 481 thou/uL (130-400); RBC Distribution Width 12.7 % (11.5-14.5); Red Blood Cell (RBC) Count 4.45 mill/uL (4.70-6.10); White Blood Cell (WBC) Count 12.6 thou/uL (4.8-10.8)
[2019-04-07 16:20] LABS: PTT 29.2 SEC (22.9-36.1); Prothrombin Time 12.9 SEC (12.0-14.7)
--- NOTE | 2019-04-07 16:23 | CT ---
CT HEAD WITHOUT IV CONTRAST COMPARISON: 03/24/2019 HISTORY: Level 2 stroke alert. Left facial droop and left facial numbness and weakness. Recent lumbar surgery . TECHNIQUE: Axial CT imaging at 5 mm intervals from vertex through skull base without contrast FINDINGS: There is no evidence of an acute infarction, hemorrhage, mass effect, or midline shift. The ventricul ar system is normal in size, shape, and position. Visualized paranasal sinuses are clear. Osseous structures appear intact. CT of the head is stable when compared to the prior exam. IMPRESSION: 1. No acute intracranial abnormality demonstrated. 2. Above findings were discussed with Dr. Alanis in the emergency department on 04/07/2019 at 1618 ho urs.
[2019-04-07 16:29] LABS: ALT (SGPT) 22 U/L (8-55); AST (SGOT) 17 U/L (5-34); Albumin 3.9 g/dL (3.4-4.8); Alkaline Phosphatase 133 U/L (40-110); Anion Gap 11 mmol/L (10-20); BUN (Urea Nitrogen) 21 mg/dL (8.4-25.7); Bilirubin, Total 0.4 mg/dL (0.2-1.2); Calc. Creatinine Clearance 0 mL/min (70-130); Calcium 9.7 mg/dL (7.8-10.44); Carbon Dioxide 28 mmol/L (23-31); Chloride 105 mmol/L (98-107); Estimated GFR-MDRD 37; Globulin 3.4 g/dL (2.4-3.5); Glucose 138 mg/dL (80-115); Potassium 4.8 mmol/L (3.5-5.1); Protein, Total 7.3 g/dL (5.8-8.1); Sodium 139 mmol/L (136-145)
[2019-04-07] MEDS ORDERED: Nitroglycerin 0.4 MG TAB 1 EACH ONE (16:32)
--- NOTE | 2019-04-07 16:36 | RAD ---
EXAM: CHEST ONE VIEW HISTORY: Chest pain COMPARISON: None 2018 FINDINGS: Postsurgical changes related to median sternotomy are again seen. Postsurgical changes lower cervical spine and right shoulder are again partially imaged. Cardiac silhouette and pulmonary vasculature are within normal limits. The lungs are clear. Chest is overall stable when compared to prior exam. IMPRESSION: No acute cardiopulmonary process.
[2019-04-07 16:56] LABS: Bilirubin Negative (Negative); Blood, Urine Negative (Negative); Clarity Clear (Clear); Glucose, Urine (Dipstick) Normal (Negative); Leukocyte Negative Leu/uL (Negative); Nitrite Negative (Negative); Protein, Urine (Dipstick) 10 mg/dL (Neg-Trace); Urobilinogen Normal mg/dL (Less than 2)
[2019-04-07] MEDS ORDERED: Nitroglycerin 2% Ointment 1 INCH/1 GM Packet ONE (17:25)
[2019-04-07 17:35] LABS: CKMB 0.8 ng/mL (0-6.6)
[2019-04-07] MEDS ORDERED: Acetaminophen 325 MG TAB PO PRN (19:19)
[2019-04-07] MEDS ORDERED: Ondansetron ODT 4 MG TAB PO PRN (19:19)
--- NOTE | 2019-04-07 19:23 | PDOC.FPRHP ---
- History of Present Illness Chief Complaint: chest tightness, left sided facial numbness History of Present Illness: Patient is a 68M with PMHx of DMII, HLD, HTN, CABG s/p NC (1 year ago), laminectomy (2 weeks ago) that presents with chest tightness and left sided facial numbness. Patient reports that he was feeling well until today when he started to feel chest tightness and left-sided facial numbness this morning. He reports that these symptoms are similar to the last time he had an NC 2 weeks ago when he was in the hospital for his laminectomy. He reports that he took 3 baby aspirins today. He states that his chest pain has improved at this time s/p nitro, though he has residual left-sided facial numbness. Denies any new onset numbness or weakness in any of his limbs. Dr. Lira was consulted in the ED and plans to take the patient for a cath on tuesday 04/10. He recommended no anticoagulation besides aspirin at this time. ED Course: 1L NS, 1 inch nitro-bid transdermal, 0.4mg nitro SL - Allergies/Adverse Reactions Allergies Allergy/AdvReac Type Severity Reaction Status Date / Time No Known Allergies Allergy Verified 03/23/19 13:06 - Home Medications Medication Instructions Recorded Confirmed Type Omeprazole 40 mg PO DAILY 11/10/15 03/23/19 History Ezetimibe 1 tab PO DAILY 03/22/19 03/22/19 History glipiZIDE [glipiZIDE ER] 1 tab PO BID 03/22/19 03/22/19 History hydrALAZINE [Apresoline] 25 mg PO BID 03/22/19 03/22/19 History Metoprolol Tartrate [Lopressor] 100 mg PO BID 03/23/19 03/23/19 History Aspirin [Ecotrin Low Strength] 81 mg PO DAILY tab 03/27/19 Rx Losartan Potassium 50 mg PO DAILY #30 tablet 03/27/19 Rx Polyethylene Glycol 3350 [Miralax] 17 gm PO DAILY #1 pk 03/27/19 Rx Sennosides/Docusate Sodium 2 tab PO BID #1 tab 03/27/19 Rx [Senokot S] - History PMHx:DMII, HLD, HTN, CABG s/p NC (1 year ago), nerve pain in his legs PSHx: CABG, laminectomy, L knee sx, neck fusion, R shoulder sx, R ankle sx FHx: father- 3 open heart surgeries, brother- open heart surgery, brother- carotid endarterectomy Social: former smoker 1ppd, no etoh or drug use - Review of Systems General: denies: fever/chills, weight/appetite/sleep changes Eyes: denies: eye pain, vision changes ENT: denies: nasal congestion, rhinorrhea Respiratory: denies: cough, shortness of breath Cardiovascular: reports: chest pain. denies: palpitation Gastrointestinal: denies: nausea, vomiting, diarrhea Genitourinary: reports: other (decreased stream, increased urination overnight) . denies: incontinence Skin: denies: rashes, lesions Musculoskeletal: denies: pain, tenderness Neurological: reports: other (left sided facial numbness) Psychological: denies: anxiety, depression - Vital signs BP: [126/82] HR: [61] RR: [14] Tmax: [99.6] Pox: [97]% on [RA] Wt: [118kg] - Physical Exam Constitutional: NAD, awake, alert and oriented HEENT: EOMI, grossly normal vision, grossly normal hearing, MMM, other ( cataracts bilaterally) Neck: supple, trachea midline Chest: no-tender to palpation, no lesions Heart: RRR, normal S1/S2 Lungs: CTAB, no respiratory distress Abdomen: soft, non-tender, bowel sounds present Musculoskeletal: normal structure, normal tone Neurological: other (left sided facial numbness, upper and lower extremity sensation and strength intact) Skin: no rash/lesions, good turgor, capillary refill <2 seconds Heme/Lymphatic: no unusual bruising or bleeding, no purpura Psychiatric: normal mood and affect, good judgment and insight FMR H&P: Results - Labs Result Diagrams: 04/08/19 08:08 04/08/19 04:40 Lab results: WBC 12.6 thou/uL (4.8-10.8) H 04/07/19 16:06 Hgb 13.4 g/dL (14.0-18.0) L 04/07/19 16:06 Hct 41.5 % (42.0-52.0) L 04/07/19 16:06 MCV 93.4 fL (78.0-98.0) 04/07/19 16:06 Plt Count 481 thou/uL (130-400) H 04/07/19 16:06 Neutrophils % 63.3 % (42.0-75.0) 04/07/19 16:06 Sodium 139 mmol/L (136-145) 04/07/19 16:06 Potassium 4.8 mmol/L (3.5-5.1) 04/07/19 16:06 Chloride 105 mmol/L (98-107) 04/07/19 16:06 Carbon Dioxide 28 mmol/L (23-31) 04/07/19 16:06 BUN 21 mg/dL (8.4-25.7) 04/07/19 16:06 Creatinine 1.82 mg/dL (0.7-1.3) H 04/07/19 16:06 Glucose 138 mg/dL (80-115) H 04/07/19 16:06 Calcium 9.7 mg/dL (7.8-10.44) 04/07/19 16:06 Total Bilirubin 0.4 mg/dL (0.2-1.2) 04/07/19 16:06 AST 17 U/L (5-34) 04/07/19 16:06 ALT 22 U/L (8-55) 04/07/19 16:06 Alkaline Phosphatase 133 U/L (40-110) H 04/07/19 16:06 CK-MB (CK-2) 0.8 ng/mL (0-6.6) 04/07/19 16:06 Serum Total Protein 7.3 g/dL (5.8-8.1) 04/07/19 16:06 Albumin 3.9 g/dL (3.4-4.8) 04/07/19 16:06 Urine Ketones Negative mg/dL (Negative) 04/07/19 16:43 Urine Blood Negative (Negative) 04/07/19 16:43 Urine Nitrite Negative (Negative) 04/07/19 16:43 Ur Leukocyte Esterase Negative Lucila/uL (Negative) 04/07/19 16:43 - EKG Interpretation EKG: T wave inversion I, AVL, V5, V6 - Radiology Interpretation CT scan - head Status: report reviewed by me (negative for intracranial abnormality) Chest x-ray Status: report reviewed by me (negative for cardiopulmonary process) FMR H&P: A/P - Problem List (1) NSTEMI (non-ST elevated myocardial infarction) Current Visit: Yes Status: Acute Code(s): I21.4 - NON-ST ELEVATION (NSTEMI) MYOCARDIAL INFARCTION (2) ROHIT (acute kidney injury) Current Visit: No Status: Acute Code(s): N17.9 - ACUTE KIDNEY FAILURE, UNSPECIFIED Comment: improving (3) Obstructive uropathy Current Visit: No Status: Chronic Code(s): N13.9 - OBSTRUCTIVE AND REFLUX UROPATHY, UNSPECIFIED Comment: s/p cystoscopy with stone extraction (4) DM type 2 (diabetes mellitus, type 2) Current Visit: No Status: Chronic Qualifiers: Chronic kidney disease stage: stage 3 (moderate) (5) HLD (hyperlipidemia) Current Visit: No Status: Chronic Code(s): E78.5 - HYPERLIPIDEMIA, UNSPECIFIED (6) HTN (hypertension) Current Visit: No Status: Chronic Code(s): I10 - ESSENTIAL (PRIMARY) HYPERTENSION - Plan Patient is a 68M with PMHx of DMII, HLD, HTN, CABG s/p NC (1 year ago), laminectomy (2 weeks ago) that is admitted for NSTEMI #NSTEMI type 2 -initial trop 0.241, continue to trend -ekg shows t wave inversion I, AVL, V5, V6, similar to previous EKG -chest pain improved with nitro -Dr. Lira consulted in ED, plans cath tuesday 04/10 -per recs, will continue asa without other anticoagulation at this time #ROHIT #Obstructive Uropathy, chronic -unsure etiology, possibly due to obstructive uropathy -patient reports chronic urinary symptoms, with decreased stream and voiding several times at night -creatinine 1.82, 1.36 in march -GFR 37, 52 in march -IVF, continue to monitor with morning labs -consider adding flomax to patient regimen and f/u outpatient #DMII, chronic -continue home meds #HLD, chronic -continue home meds #HTN, well controlled on evaluation -continue home meds DVT ppx: asa Diet: HH Code: Full Dispo: inpatient for planned cath on tuesday 04/10 FMR H&P: Upper Level - Pertinent history 68 yo M here with complaint of chest tightness and periodic numbness on the L side of his face that onset earlier this day. He was recently hospitalized for lumbar laminectomy, this was complicated by a STEMI which was treated only with ASA due to proximity to spinal surgery. He also has a hx of previous NC and CABG. In the ER, his EKG was unchanged from prior. He did have a mildly elevated trop, however this was considerably lower than what was seen in his last visit. Due to the facial numbness a CT brain was ordered in ER and was negative. At the time of H&P he denies CP or numbness. PMHx CAD s/p CABG Recent STEMI HTN DM2 BPH Neurogenic bladder Surgical Hx Lumbar laminectomy CABG - Pertinent findings See director international note for full ROS, PE, vitals, and labs ROS General Denies fever/chills CV Complains of chest tightness. Denies diaphoresis Resp Denies SOB Neuro complains of off and on facial numbness. No weakness or slurred speech. Denies peripheral numbness/weakness. No changes in vision or QURESHI GI denies n/v/d/c or abdominal pain complains of weak stream and difficulty urinating PE General NAD, A&O x4 HEENT NCAT, MMM CV RRR, no murmur Resp CTA Abd non tender, no distension, normal BS Neuro PERRLA, CN II-XII intact, normal peripheral sensation, normal peripheral strength - Plan Date/Time: 04/07/191922 Shon De La Cruz DO, have evaluated this patient and agree with findings/plan as outlined by director international resident. Pertinent changes/additions are listed here. 1.NSTEMI -Patient was seen in ER by Dr Lira who plans of cath on 04/10 -Admit to tele -Trend trops -Due to recent spinal surgery, will not start lovenox. ASA 325 qam 2.ROHIT -Unclear etiology, given hx of neurogenic bladder and possible BPH it is possible that this is obstructive in nature. -Will get bladder scan, if indicated will place schwarz catheter -IVF and monitor BMP in am 3.Facial numbness -Per patient this was a symptom in his previous NC -Given the possibility of cerebral etiology, will order MRI in am 4.CAD -Home meds 5.HTN -Home meds See director international portion for management of other chronic problems Diet HH, low carb Code Full PPx SCD Addendum - Attending - Attending Attestation Date/Time: 04/07/191901 I personally evaluated the patient and discussed the management with Dr. Birch. I agree with the History, Examination, Assessment and Plan documented above with any addition or exceptions noted below. The patient presents with chest tightness and left-sided facial numbness. Troponin was elevated. He had a recent NC following laminectomy but didn't undergo cath at that time. Cardiology has been consulted who recommends Asa but no other anticoagulation and plans for heart cath on wednesday. Pt also has an ROHIT. Will add IV fluids and trend. Will get MRI brain to further assess the facial numbness.
[2019-04-07 19:38] LABS: Troponin I 0.252 ng/mL (< 0.028)
[2019-04-07] MEDS: Lactated Ringer's 1,000 ML IV SCH (22:11)
[2019-04-07 22:48] LABS: Troponin I 0.197 ng/mL (< 0.028)
[2019-04-08 00:37] VITALS: BMI 34.5
--- NOTE | 2019-04-08 05:32 | PDOC.FM ---
- Subjective Subjective: Pt without facial numbness or chest pain this morning. States these all resolved when he was in the ED. Denies any SOB or leg swelling. Requests to be able to get up and move around today as he is 2 wk post op laminectomy and does not want to get stiff. - Objective Vital Signs & Weight: Vital Signs (12 hours) Temp Pulse Resp BP Pulse Ox 04/08/19 03:54 97.5 F L 75 18 125/66 98 04/07/19 20:00 97 04/07/19 19:19 97.5 F L 70 18 124/78 97 Weight Weight 106.141 kg Result Diagrams: 04/08/19 08:08 04/08/19 04:40 Phys Exam - Physical Examination Constitutional: NAD HEENT: moist MMs, sclera anicteric Neck: no JVD, full ROM Respiratory: no wheezing, no rales, no rhonchi, clear to auscultation bilateral Cardiovascular: RRR Gastrointestinal: soft, non-tender Musculoskeletal: no edema, pulses present Neurological: non-focal, normal sensation, moves all 4 limbs Facial numbness resolved Psychiatric: normal affect, A&O x 3 Skin: cap refill <2 seconds Dx/Plan (1) Elevated troponin Code(s): R79.89 - OTHER SPECIFIED ABNORMAL FINDINGS OF BLOOD CHEMISTRY Status : Acute (2) ROHIT (acute kidney injury) Code(s): N17.9 - ACUTE KIDNEY FAILURE, UNSPECIFIED Status: Acute (3) Focal neurological deficit Code(s): R29.818 - OTHER SYMPTOMS AND SIGNS INVOLVING THE NERVOUS SYSTEM Status: Acute (4) CAD (coronary artery disease) Code(s): I25.10 - ATHSCL HEART DISEASE OF [place] CORONARY ARTERY W/O ANG PCTRS Status: Chronic (5) HLD (hyperlipidemia) Code(s): E78.5 - HYPERLIPIDEMIA, UNSPECIFIED Status: Chronic (6) HTN (hypertension) Code(s): I10 - ESSENTIAL (PRIMARY) HYPERTENSION Status: Chronic (7) Obstructive uropathy Code(s): N13.9 - OBSTRUCTIVE AND REFLUX UROPATHY, UNSPECIFIED Status: Chronic (8) History of ST elevation myocardial infarction (STEMI) Code(s): I25.2 - OLD MYOCARDIAL INFARCTION Status: Acute (9) DM type 2 (diabetes mellitus, type 2) Status: Chronic Qualifiers: Chronic kidney disease stage: stage 3 (moderate) - Plan Plan: NSTEMI type 2 - STEMI 2 weeks ago during admission for laminectomy procedure, CABG 1.5 years ago, previous stents - Trops: 0.241 -> 0.252 -> 0.197 - Dr. Lira consulted in ED, plans cath tuesday 04/10 - per recs, will continue asa without other anticoagulation at this time Focal Neurologic Deficit - R/O CVA - Left sided facial numbness, no other weakness/numbness - MRI w/ and w/o today - Neuro checks ROHIT Obstructive Uropathy, chronic - IVF overnight, Cr 1.45 - approaching baseline - Will continue to monitor will inpt - consider adding flomax to patient regimen and f/u outpatient DMII, chronic - continue home meds - SSI and hypoglycemic protocol HLD, chronic - continue home meds HTN, well controlled on evaluation - continue home meds DVT ppx: asa Diet: HH Code: Full Dispo: inpatient for planned cath on tuesday 04/10. MRI today. Will work on med rec today to resume home rx. Addendum - Attending - Attending Attestation Date/Time: 04/08/19 8822 I personally evaluated the patient and discussed the management with Dr. Ellington. I agree with the History, Examination, Assessment and Plan documented above with any addition or exceptions noted below. Cardiac enzymes have down-trended. Will get MRI brain today. PT/OT. Cath on Wednesday.
[2019-04-08 05:34] LABS: Anion Gap 11 mmol/L (10-20); BUN (Urea Nitrogen) 21 mg/dL (8.4-25.7); Calc. Creatinine Clearance 71 mL/min (70-130); Carbon Dioxide 24 mmol/L (23-31); Chloride 111 mmol/L (98-107); Estimated GFR-MDRD 48; Glucose 96 mg/dL (80-115); Potassium 4.8 mmol/L (3.5-5.1); Sodium 141 mmol/L (136-145)
[2019-04-08] MEDS: Lactated Ringer's 1,000 ML IV SCH ×3 (06:07→18:16)
[2019-04-08 08:29] LABS: #Basophils 0.1 thou/uL (0.0-0.2); #Eosinphils 0.8 thou/uL (0.0-0.7); #Lymphocytes 2.3 thou/uL (1.20-3.40); #Monocytes 0.6 thou/uL (0.11-0.59); #Neutrophils 9.9 thou/uL (1.40-6.50); %Basophils 0.9 % (0.0-1.0); %Eosinophils 5.9 % (0.0-10.0); %Lymphocytes 16.9 % (21.0-51.0); %Monocytes 4.4 % (0.0-10.0); %Neutrophils 71.9 % (42.0-75.0); Hemoglobin 12.1 g/dL (14.0-18.0); Mean Corpuscular HGB CONC 32.7 g/dL (32.0-36.0); Mean Corpuscular Hemoglobin 30.9 pg (27.0-31.0); Mean Corpuscular Volume 94.4 fL (78.0-98.0); Mean Platelet Volume 8.3 fL (7.4-10.4); Platelet Count 395 thou/uL (130-400); RBC Distribution Width 12.9 % (11.5-14.5); Red Blood Cell (RBC) Count 3.92 mill/uL (4.70-6.10); White Blood Cell (WBC) Count 13.8 thou/uL (4.8-10.8)
[2019-04-08] MEDS ORDERED: HumaLOG 300 UNITS/3 ML VIAL SC PRN ×2 (08:43)
[2019-04-08] MEDS ORDERED: Dextrose 5% in Water 1,000 ML IV PRN (08:43)
[2019-04-08] MEDS ORDERED: Dextrose 50% Abboject 50 ML SYRINGE SLOW IVP PRN (08:43)
[2019-04-08 08:57] LABS: CKMB 0.7 ng/mL (0-6.6); Troponin I 0.188 ng/mL (< 0.028)
[2019-04-08] MEDS: Aspirin 325 MG TAB PO SCH (09:57)
--- NOTE | 2019-04-08 12:25 | PDOC.CPN ---
- Subjective Date: 04/08/19 Time: 12:24 Interval history: c/o QURESHI. No CP. - Review of Systems General: denies: fever/chills, weight/appetite/sleep changes, night sweats, fatigue Respiratory: denies: cough, congestion, shortness of breath, exercise intolerance Cardiovascular: denies: chest pain, palpitation, edema, paroxysmal nocturnal dyspnea, orthopnea Gastrointestinal: denies: nausea, vomiting, diarrhea, constipation, abd pain, GI bleeding Musculoskeletal: denies: pain, tenderness, stiffness, swelling, arthritis/ arthralgias Neurological: denies: numbness, syncope, seizure, weakness - Objective Allergies/Adverse Reactions: Allergies Allergy/AdvReac Type Severity Reaction Status Date / Time No Known Allergies Allergy Verified 03/23/19 13:06 Visit Medications: Current Medications Acetaminophen (Tylenol) 650 mg PO Q4H PRN PRN Reason: Headache/Fever/Mild Pain (1-3) Aspirin (Aspirin) 325 mg PO DAILY [facility] Last Admin: 04/08/19 09:57 Dose: 325 mg Dextrose/Water (Dextrose 50%) 25 gm SLOW IVP PRN PRN PRN Reason: Hypoglycemia Glucagon (Glucagon) 1 mg IM PRN PRN PRN Reason: Hypoglycemia Lactated Ringer's (Lactated Ringer's) 1,000 mls @ 150 mls/hr IV .Q6H40M [facility] Last Admin: 04/08/19 06:07 Dose: 1,000 mls Dextrose/Water (D5w) 1,000 mls @ 0 mls/hr IV .Q0M PRN PRN Reason: Hypoglycemia Insulin Human Lispro (Humalog) 0 units SC .MILD SLIDING SCALE PRN PRN Reason: Mild Correctional Scale Insulin Human Lispro (Humalog) 0 units SC .BEDTIME SLIDING SC PRN PRN Reason: Bedtime Correctional Scale Ondansetron HCl (Zofran Odt) 4 mg PO Q6H PRN PRN Reason: Nausea/Vomiting Vital Signs & Weight: Vital Signs Temp Pulse Resp BP Pulse Ox 04/08/19 08:40 94 L 04/08/19 08:39 97.8 F 65 18 137/64 96 04/08/19 03:54 97.5 F L 75 18 125/66 98 Weight 234 lb - Physical Exam General: alert & oriented x3, appears well HEENT: mucus membranes moist Neck: supple neck Cardiac: regular rate and rhythm Lungs: clear to auscultation, no wheeze, rales, rhonchi Neuro: grossly intact Abdomen: soft, non-tender Extremities: no cyanosis Skin: clear Musculoskeletal: normal range of motion - Labs Result Diagrams: 04/08/19 08:08 04/08/19 04:40 Troponin/CKMB CK-MB (CK-2) 0.7 ng/mL (0-6.6) 04/08/19 08:07 Troponin I 0.188 ng/mL (< 0.028) H 04/08/19 08:07 - Telemetry Sinus rhythms and dysrhythmias: sinus rhythm - Assessment/Plan Assessment/Plan: 1. UA 2. CAD s/p CABG 3. Recent post-op [place] 4. MACK Stable on nitropaste. Plan for C Wednesday. Doing well Plan on angio on Wednesday Creatinine has been better
--- NOTE | 2019-04-08 13:23 | MRI ---
MRI Brain WO Con: 04/08/2019 8:19 PM CLINICAL HISTORY: Left facial droop and numbness. COMPARISON: Compared to head CT previous day FINDINGS: Extra axial spaces: Normal in size and morphology for the patient's age. Acute infarction: None. Ventricular system: Mild prominence. Basal cisterns: Normal. Cerebral parenchyma: Normal. Midline shift: None. 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 Brainstem: Normal. Paranasal sinuses:Clear IMPRESSION: No acute territorial infarction or mass effect. Mild prominence of ventricular system, slightly out of proportion size of cerebral sulci. Recommend c linical correlation to exclude evidence of normal pressure hydrocephalus.
[2019-04-08] MEDS: hydrALAZINE 25 MG TAB PO SCH ×2 (16:22→21:47)
[2019-04-08] MEDS: traMADol HCl 50 MG TAB PO SCH ×2 (16:22→21:49)
[2019-04-08] MEDS: Sodium Chloride 0.9% 1,000 ML IV SCH (18:15)
[2019-04-08] MEDS: Metoprolol Tartrate 100 MG TAB PO SCH (21:47)
[2019-04-09] MEDS: Sodium Chloride 0.9% 1,000 ML IV SCH (03:11)
--- NOTE | 2019-04-09 05:39 | PDOC.FM ---
- Subjective Subjective: Pt denies any SOB, CP, leg swelling since admission. Notes that his difficulty urinating has essentially resolved and with the IVF he has been urinating often since admission. - Objective Vital Signs & Weight: Vital Signs (12 hours) Temp Pulse Resp BP BP Pulse Ox 04/09/19 04:00 97.8 F 59 L 16 143/68 H 04/08/19 21:47 75 136/66 04/08/19 20:00 97.5 F L 75 16 136/66 96 Weight Weight 106.141 kg Result Diagrams: 04/08/19 08:08 04/09/19 06:56 Phys Exam - Physical Examination Constitutional: NAD HEENT: moist MMs, sclera anicteric Neck: no JVD, full ROM Respiratory: clear to auscultation bilateral Cardiovascular: RRR Gastrointestinal: soft, non-tender Musculoskeletal: no edema, pulses present Neurological: non-focal, moves all 4 limbs Psychiatric: normal affect, A&O x 3 Skin: no rash Dx/Plan (1) Elevated troponin Code(s): R79.89 - OTHER SPECIFIED ABNORMAL FINDINGS OF BLOOD CHEMISTRY Status : Acute (2) ROHIT (acute kidney injury) Code(s): N17.9 - ACUTE KIDNEY FAILURE, UNSPECIFIED Status: Acute (3) Focal neurological deficit Code(s): R29.818 - OTHER SYMPTOMS AND SIGNS INVOLVING THE NERVOUS SYSTEM Status: Acute (4) CAD (coronary artery disease) Code(s): I25.10 - ATHSCL HEART DISEASE OF [place] CORONARY ARTERY W/O ANG PCTRS Status: Chronic (5) HLD (hyperlipidemia) Code(s): E78.5 - HYPERLIPIDEMIA, UNSPECIFIED Status: Chronic (6) HTN (hypertension) Code(s): I10 - ESSENTIAL (PRIMARY) HYPERTENSION Status: Chronic (7) Obstructive uropathy Code(s): N13.9 - OBSTRUCTIVE AND REFLUX UROPATHY, UNSPECIFIED Status: Chronic (8) History of ST elevation myocardial infarction (STEMI) Code(s): I25.2 - OLD MYOCARDIAL INFARCTION Status: Acute (9) DM type 2 (diabetes mellitus, type 2) Status: Chronic Qualifiers: Chronic kidney disease stage: stage 3 (moderate) - Plan Plan: NSTEMI type 2 - STEMI 2 weeks ago during admission for laminectomy procedure, CABG 1.5 years ago, previous stents - Trops: 0.241 -> 0.252 -> 0.197 - Dr. Lira consulted in ED, plans cath tuesday 04/10 - per recs, will continue asa without other anticoagulation at this time Focal Neurologic Deficit - R/O CVA - Left sided facial numbness, no other weakness/numbness - MRI: Mild prominence of ventricular system, recommended clinical correlation for NPH. No infarction or mass - Neuro checks ROHIT Obstructive Uropathy, chronic - IVF overnight, Cr 1.2 - at baseline - Will continue to monitor will inpt - consider adding flomax to patient regimen and f/u outpatient DMII, chronic - continue home meds - SSI and hypoglycemic protocol HLD, chronic - continue home meds HTN, well controlled on evaluation - continue home meds DVT ppx: asa Diet: HH IVF: LR @ 100 Code: Full Dispo: inpatient for planned cath on tuesday 04/10. Home meds rec yesterday. Cont plan of care for cath tomorrow Addendum - Attending - Attending Attestation Date/Time: 04/09/19 4827 I personally evaluated the patient and discussed the management with Dr. Ellington. I agree with the History, Examination, Assessment and Plan documented above with any addition or exceptions noted below. The patient is feeling well this morning. MRI showed no acute infarct. Pt notes his urination is back to normal. Heart cath tomorrow.
[2019-04-09 07:22] LABS: Anion Gap 11 mmol/L (10-20); BUN (Urea Nitrogen) 14 mg/dL (8.4-25.7); Calc. Creatinine Clearance 86 mL/min (70-130); Calcium 9.1 mg/dL (7.8-10.44); Carbon Dioxide 25 mmol/L (23-31); Chloride 108 mmol/L (98-107); Estimated GFR-MDRD 60; Glucose 89 mg/dL (80-115); Potassium 4.4 mmol/L (3.5-5.1); Sodium 140 mmol/L (136-145)
[2019-04-09] MEDS ORDERED: Communication Order-Pharmacy FS SCH (08:15)
[2019-04-09] MEDS ORDERED: traMADol HCl 50 MG TAB PO PRN (08:33)
[2019-04-09] MEDS ORDERED: Aspirin 81 mg Enteric Coated Tablet PO SCH (09:00)
[2019-04-09] MEDS: Losartan 25 MG TAB PO SCH (09:38)
[2019-04-09] MEDS: Aspirin 325 MG TAB PO SCH (09:38)
[2019-04-09] MEDS: Metoprolol Tartrate 100 MG TAB PO SCH ×2 (09:39→21:23)
[2019-04-09] MEDS: Ezetimibe 10 MG TAB PO SCH (09:39)
[2019-04-09] MEDS: hydrALAZINE 25 MG TAB PO SCH ×3 (09:39→21:23)
--- NOTE | 2019-04-09 11:34 | PDOC.CPN ---
- Subjective Date: 04/09/19 Time: 11:33 - Review of Systems General: denies: fever/chills, weight/appetite/sleep changes, night sweats, fatigue Respiratory: denies: cough, congestion, shortness of breath, exercise intolerance Cardiovascular: denies: chest pain, palpitation, edema, paroxysmal nocturnal dyspnea, orthopnea Gastrointestinal: denies: nausea, vomiting, diarrhea, constipation, abd pain, GI bleeding Musculoskeletal: denies: pain, tenderness, stiffness, swelling, arthritis/ arthralgias Neurological: denies: numbness, syncope, seizure, weakness - Objective Allergies/Adverse Reactions: Allergies Allergy/AdvReac Type Severity Reaction Status Date / Time No Known Allergies Allergy Verified 03/23/19 13:06 Visit Medications: Current Medications Acetaminophen (Tylenol) 650 mg PO Q4H PRN PRN Reason: Headache/Fever/Mild Pain (1-3) Aspirin (Aspirin) 325 mg PO DAILY [facility] Last Admin: 04/09/19 09:38 Dose: 325 mg Dextrose/Water (Dextrose 50%) 25 gm SLOW IVP PRN PRN PRN Reason: Hypoglycemia Ezetimibe (Zetia) 10 mg PO DAILY [facility] Last Admin: 04/09/19 09:39 Dose: 10 mg Glipizide (Glucotrol Xl) 2.5 mg PO BID-WM [facility] Last Admin: 04/09/19 09:39 Dose: 2.5 mg Glucagon (Glucagon) 1 mg IM PRN PRN PRN Reason: Hypoglycemia Hydralazine HCl (Apresoline) 25 mg PO TID [facility] Last Admin: 04/09/19 09:39 Dose: 25 mg Dextrose/Water (D5w) 1,000 mls @ 0 mls/hr IV .Q0M PRN PRN Reason: Hypoglycemia Sodium Chloride (Normal Saline 0.9%) 1,000 mls @ 100 mls/hr IV .Q10H [facility] Last Admin: 04/09/19 03:11 Dose: 1,000 mls Sodium Chloride (Normal Saline 0.9%) 1,000 mls @ 100 mls/hr IV .Q10H [facility] Insulin Human Lispro (Humalog) 0 units SC .MILD SLIDING SCALE PRN PRN Reason: Mild Correctional Scale Insulin Human Lispro (Humalog) 0 units SC .BEDTIME SLIDING SC PRN PRN Reason: Bedtime Correctional Scale Losartan Potassium (Cozaar) 50 mg PO DAILY [facility] Last Admin: 04/09/19 09:38 Dose: 50 mg Metoprolol Tartrate (Lopressor) 100 mg PO BID [facility] Last Admin: 04/09/19 09:39 Dose: 100 mg Miscellaneous Information (Communication Order-Pharmacy) 0 each FS ONE [facility] Stop: 04/09/19 23:59 Ondansetron HCl (Zofran Odt) 4 mg PO Q6H PRN PRN Reason: Nausea/Vomiting Tramadol HCl (Ultram) 50 mg PO PRN PRN PRN Reason: Pain Vital Signs & Weight: Vital Signs Temp Pulse Resp BP Pulse Ox 04/09/19 09:39 66 04/09/19 07:57 97.9 F 66 18 139/79 95 04/09/19 07:25 95 04/09/19 04:00 97.8 F 59 L 16 143/68 H Weight 234 lb - Physical Exam General: alert & oriented x3, appears well HEENT: mucus membranes moist Neck: supple neck Cardiac: regular rate and rhythm Lungs: clear to auscultation, normal breath sounds Neuro: grossly intact Abdomen: soft, non-tender Extremities: no cyanosis, no edema Skin: clear Musculoskeletal: normal range of motion - Labs Result Diagrams: 04/08/19 08:08 04/09/19 06:56 Troponin/CKMB CK-MB (CK-2) 0.7 ng/mL (0-6.6) 04/08/19 08:07 Troponin I 0.188 ng/mL (< 0.028) H 04/08/19 08:07 - Telemetry Sinus rhythms and dysrhythmias: sinus rhythm - Assessment/Plan Assessment/Plan: 1. UA 2. CAD s/p CABG 3. Recent post-op [place] 4. MACK Off nitropaste. QURESHI resolved. No CP. Feels great. Plan for [facility] tomorrow.
[2019-04-10] MEDS: Ezetimibe 10 MG TAB PO SCH (05:06)
[2019-04-10] MEDS: Metoprolol Tartrate 100 MG TAB PO SCH (05:06)
[2019-04-10] MEDS: Losartan 25 MG TAB PO SCH (05:06)
[2019-04-10] MEDS: Aspirin 325 MG TAB PO SCH (05:06)
[2019-04-10] MEDS: hydrALAZINE 25 MG TAB PO SCH ×3 (05:06→20:29)
[2019-04-10 05:51] LABS: Anion Gap 11 mmol/L (10-20); BUN (Urea Nitrogen) 18 mg/dL (8.4-25.7); Calc. Creatinine Clearance 79 mL/min (70-130); Calcium 9.4 mg/dL (7.8-10.44); Carbon Dioxide 27 mmol/L (23-31); Chloride 107 mmol/L (98-107); Estimated GFR-MDRD 54; Glucose 88 mg/dL (80-115); Potassium 4.2 mmol/L (3.5-5.1); Sodium 141 mmol/L (136-145)
[2019-04-10] MEDS ORDERED: Sodium Chloride 0.9% 1,000 ML IV SCH ×2 (06:00)
--- NOTE | 2019-04-10 06:01 | PDOC.FM ---
- Subjective Subjective: Pt doing well w/o any complaints. - Objective Vital Signs & Weight: Vital Signs (12 hours) Temp Pulse Resp BP BP Pulse Ox 04/10/19 05:06 65 147/67 H 04/10/19 04:00 97.7 F 65 16 147/67 H 04/09/19 21:23 58 L 151/72 H 04/09/19 20:00 98.0 F 58 L 18 151/72 H 97 Weight Weight 106.141 kg Result Diagrams: 04/08/19 08:08 04/10/19 04:48 Phys Exam - Physical Examination Constitutional: NAD HEENT: PERRLA, moist MMs Respiratory: no wheezing, no rales, clear to auscultation bilateral Cardiovascular: RRR, no significant murmur Gastrointestinal: soft, non-tender, no distention Musculoskeletal: no edema, pulses present Dx/Plan (1) Elevated troponin Code(s): R79.89 - OTHER SPECIFIED ABNORMAL FINDINGS OF BLOOD CHEMISTRY Status : Acute (2) History of ST elevation myocardial infarction (STEMI) Code(s): I25.2 - OLD MYOCARDIAL INFARCTION Status: Acute (3) Chest pain Code(s): R07.9 - CHEST PAIN, UNSPECIFIED Status: Acute (4) CAD (coronary artery disease) Code(s): I25.10 - ATHSCL HEART DISEASE OF [place] CORONARY ARTERY W/O ANG PCTRS Status: Chronic (5) DM type 2 (diabetes mellitus, type 2) Status: Chronic Qualifiers: Chronic kidney disease stage: stage 3 (moderate) (6) HLD (hyperlipidemia) Code(s): E78.5 - HYPERLIPIDEMIA, UNSPECIFIED Status: Chronic (7) HTN (hypertension) Code(s): I10 - ESSENTIAL (PRIMARY) HYPERTENSION Status: Chronic - Plan Plan: NSTEMI type 2 - STEMI 2 weeks ago during admission for laminectomy procedure, CABG 1.5 years ago, previous stents - Trops: 0.241 -> 0.252 -> 0.197 - Dr. Lira consulted in ED, plans cath today 04/10 - per recs, will continue asa without other anticoagulation at this time - Cont metoprolol Focal Neurologic Deficit - R/O CVA - Left sided facial numbness, no other weakness/numbness - MRI: Mild prominence of ventricular system, recommended clinical correlation for NPH which was negative. No infarction or mass - Neuro checks ROHIT Obstructive Uropathy, chronic - IVF overnight, Cr 1.2 - at baseline - Will continue to monitor will inpt - consider adding flomax to patient regimen and f/u outpatient DMII, chronic - continue home meds - SSI and hypoglycemic protocol HLD, chronic - continue home meds HTN, well controlled on evaluation - continue home meds DVT ppx: asa Diet: HH IVF: NS @ 50 Code: Full Dispo: inpatient, Cont plan of care for cath today
--- NOTE | 2019-04-10 07:18 | CON ---
DATE OF CONSULTATION: REASON FOR CONSULTATION: Recurrent chest pain. HISTORY OF PRESENT ILLNESS: Mr. Pacheco is a very pleasant 68-year-old gentleman with history of CAD, status bypass surgery, previous patient of Dr. Sabino Rader. Dr. Sabino Rader is out for the week. Mr. Pacheco was seen and evaluated and underwent a laminectomy on March 23, 2019. In the postoperative period, he developed ST-segment elevation [place] noted anterolaterally. Conservative treatment was recommended given recent laminectomy. He was therefore discharged after medical therapy. He then had recurrent chest pain. The pain was waxing and waning with radiation to his jaw. He is currently pain free. His initial troponin was 0.2, likely residual from an initial troponin of . CK-MB is currently pending. CAD, status post bypass surgery. The patient states he attempted stent placement prior to bypass and was unable to. He was to undergo bypass surgery x4, but only underwent bypass surgery x3; hypertension; hyperlipidemia; diabetes mellitus; BPH; recent laminectomy; knee surgery; neck fusion; and shoulder surgery. HOME MEDICATIONS: Included, 1. Losartan. 2. Metoprolol. 3. Norvasc. 4. Crestor. 5. Omeprazole. 6. Plavix. 7. Zetia. 8. Hydralazine. 9. Glipizide. ALLERGIES: NONE. SOCIAL HISTORY: No current tobacco or alcohol use. REVIEW OF SYSTEMS: A 10-point review of systems is reviewed as above, otherwise negative. PHYSICAL EXAMINATION: GENERAL: Patient is a pleasant male, who is in no acute distress. The patient appears their stated age. VITAL SIGNS: Blood pressure 164/80, pulse 80, and respirations 20. NEUROLOGIC: The patient is alert and oriented x3 with no focal neurologic deficits. HEENT: Sclerae without icterus. Mouth has moist mucous membranes with normal pallor. NECK: No JVD. Carotid upstroke brisk. No bruits bilaterally. LUNGS: Clear to auscultation with unlabored respirations. BACK: No scoliosis or kyphosis. CARDIAC: Regular rate and rhythm with normal S1 and S2. No S3 or S4 noted. No significant rubs, murmurs, thrills, or gallops noted throughout the precordium. PMI is not displaced. There is no parasternal heave. ABDOMEN: Soft, nontender, nondistended. No peritoneal signs present. No hepatosplenomegaly. No abnormal striae. EXTREMITIES: 2+ femoral and 2+ dorsalis pedis pulses. No cyanosis, clubbing, or edema. SKIN: No gross abnormalities. PERTINENT LABORATORY DATA: Creatinine 1.82, which is up from 1.36. Troponin 0.2. CK-MB pending. Hemoglobin 13.4, white blood cell count 12.6. EKG shows normal sinus rhythm with ST-T wave changes suggesting ischemia. Similar findings noted on previous EKG two weeks ago. IMPRESSION: 1. Recurrent chest pain. 2. Coronary artery disease. 3. Status post bypass surgery. 4. Recent laminectomy. RECOMMENDATIONS: I discussed the case with Dr. Montero. Given that he is now two weeks out, the benefits outweigh the risks on proceeding with anticoagulation therapy if needed. At this point, we will continue aspirin in addition to adding nitroglycerin paste. If needed, could add IV nitroglycerin. Would recommend proceeding with coronary angiography plus PCI. I discussed the procedure in full detail with Mr. Pacheco. Risks included, not limited to the following: , stroke, WA, need for emergency surgery, loss of limb, bleeding, and infection, as well as a reaction to the dye causing kidney failure and needing long-term dialysis. I also discussed the risks of PCI to include all of the above including coronary dissection and perforation in addition to acute stent thrombosis and restenosis. All questions about the procedure were answered. Given the above, the patient agreed to proceed with coronary angiography and possible PCI. Certainly an increased risk of contrast nephropathy, but we will try and hydrate prior to the procedure. He currently appears comfortable and would like to proceed with hydration prior to proceeding with angio. The further he is out from his laminectomy, less likely he will have complications from laminectomy. Plan should be, we will continue hydration over the weekend and angio on Wednesday. Job ID: [id number]
[2019-04-10] MEDS ORDERED: Lidocaine 1% (PF) 30 ML VIAL ONE (09:18)
[2019-04-10] MEDS ORDERED: Midazolam HCl 2 mg/2 ml Vial ONE (10:20)
[2019-04-10] MEDS ORDERED: Fentanyl 100 MCG/2 ML VIAL ONE (10:20)
[2019-04-10] MEDS ORDERED: hydrALAZINE 20 MG/ML VIAL ONE (10:59)
[2019-04-10] MEDS ORDERED: Iopamidol 370 76% 100 ML VIAL ONE (14:02)
[2019-04-11 05:40] LABS: Anion Gap 13 mmol/L (10-20); BUN (Urea Nitrogen) 19 mg/dL (8.4-25.7); Calc. Creatinine Clearance 74 mL/min (70-130); Calcium 9.1 mg/dL (7.8-10.44); Carbon Dioxide 24 mmol/L (23-31); Chloride 107 mmol/L (98-107); Estimated GFR-MDRD 51; Glucose 72 mg/dL (80-115); Potassium 4.3 mmol/L (3.5-5.1); Sodium 140 mmol/L (136-145)
--- NOTE | 2019-04-11 05:52 | PDOC.FM ---
- Subjective Subjective: Pt in stress test. - Objective Vital Signs & Weight: Vital Signs (12 hours) Temp Pulse Resp BP BP Pulse Ox 04/11/19 04:00 98.0 F 70 18 130/61 97 04/10/19 20:29 86 125/63 04/10/19 20:02 99.0 F 86 18 125/63 96 Weight Weight 106.141 kg Result Diagrams: 04/08/19 08:08 04/11/19 04:31 Phys Exam - Physical Examination Pt in stress exam. Dx/Plan (1) Elevated troponin Code(s): R79.89 - OTHER SPECIFIED ABNORMAL FINDINGS OF BLOOD CHEMISTRY Status : Acute (2) History of ST elevation myocardial infarction (STEMI) Code(s): I25.2 - OLD MYOCARDIAL INFARCTION Status: Acute (3) Chest pain Code(s): R07.9 - CHEST PAIN, UNSPECIFIED Status: Acute (4) CAD (coronary artery disease) Code(s): I25.10 - ATHSCL HEART DISEASE OF [place] CORONARY ARTERY W/O ANG PCTRS Status: Chronic (5) DM type 2 (diabetes mellitus, type 2) Status: Chronic Qualifiers: Chronic kidney disease stage: stage 3 (moderate) (6) HLD (hyperlipidemia) Code(s): E78.5 - HYPERLIPIDEMIA, UNSPECIFIED Status: Chronic (7) HTN (hypertension) Code(s): I10 - ESSENTIAL (PRIMARY) HYPERTENSION Status: Chronic - Plan Plan: NSTEMI type 2 STEMI 2 weeks ago during admission for laminectomy procedure, CABG 1.5 years ago , previous stents Trops on admission: 0.241 -> 0.252 -> 0.197 Cath performed on 04/10/19 revealing non-complete occlusion at the bifurcation of 2 arteries on distal portion of stent placement. - Dr. Lira consulted; appreciate rec's and care - plans stress test today - per recs, will continue asa without other anticoagulation at this time - Held metoprolol for stress test Focal Neurologic Deficit - R/O CVA - Left sided facial numbness, no other weakness/numbness - MRI: Mild prominence of ventricular system, recommended clinical correlation for NPH which was negative. No infarction or mass - Neuro checks ROHIT Obstructive Uropathy, chronic - Cr 1.2 - at baseline - Will continue to monitor will inpt. Post-void bladder scan revealed - consider adding flomax to patient regimen and f/u outpatient DMII, chronic - continue home meds - SSI and hypoglycemic protocol HLD, chronic - continue home meds HTN, well controlled on evaluation - continue home meds DVT ppx: asa Diet: HH IVF: none Code: Full Dispo: inpatient, Cont plan of care for stress test today. Will follow up with pt after test, possible discharge.
--- NOTE | 2019-04-11 06:28 | PDOC.CPN ---
- Subjective Date: 04/11/19 Time: 15:11 Interval history: No complaints. Receent stress with EF of 30% and scar to the inferolateral wall - Objective Allergies/Adverse Reactions: Allergies Allergy/AdvReac Type Severity Reaction Status Date / Time No Known Allergies Allergy Verified 03/23/19 13:06 Visit Medications: Current Medications Acetaminophen (Tylenol) 650 mg PO Q4H PRN PRN Reason: Headache/Fever/Mild Pain (1-3) Aspirin (Aspirin) 325 mg PO DAILY [facility] Last Admin: 04/10/19 05:06 Dose: 325 mg Dextrose/Water (Dextrose 50%) 25 gm SLOW IVP PRN PRN PRN Reason: Hypoglycemia Ezetimibe (Zetia) 10 mg PO DAILY [facility] Last Admin: 04/10/19 05:06 Dose: 10 mg Glipizide (Glucotrol Xl) 2.5 mg PO BID-[facility] Last Admin: 04/10/19 16:26 Dose: 2.5 mg Glucagon (Glucagon) 1 mg IM PRN PRN PRN Reason: Hypoglycemia Hydralazine HCl (Apresoline) 25 mg PO TID [facility] Last Admin: 04/10/19 20:29 Dose: 25 mg Dextrose/Water (D5w) 1,000 mls @ 0 mls/hr IV .Q0M PRN PRN Reason: Hypoglycemia Insulin Human Lispro (Humalog) 0 units SC .MILD SLIDING SCALE PRN PRN Reason: Mild Correctional Scale Insulin Human Lispro (Humalog) 0 units SC .BEDTIME SLIDING SC PRN PRN Reason: Bedtime Correctional Scale Losartan Potassium (Cozaar) 50 mg PO DAILY [facility] Last Admin: 04/10/19 05:06 Dose: 50 mg Metoprolol Tartrate (Lopressor) 100 mg PO BID [facility] Last Admin: 04/10/19 05:06 Dose: 100 mg Ondansetron HCl (Zofran Odt) 4 mg PO Q6H PRN PRN Reason: Nausea/Vomiting Sodium Chloride (Flush - Normal Saline) 10 ml IVF Q12HR [facility] Last Admin: 04/10/19 20:30 Dose: 10 ml Sodium Chloride (Flush - Normal Saline) 10 ml IVF PRN PRN PRN Reason: Saline Flush Tramadol HCl (Ultram) 50 mg PO Q8H PRN PRN Reason: Moderate Pain (4-6) Vital Signs & Weight: Vital Signs Temp Pulse Resp BP BP Pulse Ox 04/11/19 04:00 98.0 F 70 18 130/61 97 04/10/19 20:29 86 125/63 04/10/19 20:02 99.0 F 86 18 125/63 96 Weight 234 lb - Physical Exam General: alert & oriented x3 Neck: no masses, no bruit Cardiac: regular rhythm Lungs: normal exam, no wheezes Neuro: grossly intact Abdomen: soft, non-tender, no masses Extremities: no edema - Labs Result Diagrams: 04/08/19 08:08 04/11/19 04:31 Troponin/CKMB CK-MB (CK-2) 0.7 ng/mL (0-6.6) 04/08/19 08:07 Troponin I 0.188 ng/mL (< 0.028) H 04/08/19 08:07 - Assessment/Plan Assessment/Plan: Recent [place] Recnt laminectomy CAD s/p CABG, stent Recnt angio with patent grafts noted to the LAD, RCA and diagonal branch No obvious signs of stenosis present SCar to the inferolateral wall Previous [place] to this region per pt Also, previous attempts at revasculariaztion to this distribution could not be performed per pt Lifevest for EF 30% BB and Imdur and ASA Add plavix in 1-2 weeks IVF for inc creat Recheck in am. If stable, ok to home
[2019-04-11] MEDS: Sodium Chloride 0.9% 1,000 ML IV SCH ×2 (08:00→22:13)
[2019-04-11] MEDS: Metoprolol Tartrate 100 MG TAB PO SCH ×2 (08:05→22:14)
[2019-04-11] MEDS: hydrALAZINE 25 MG TAB PO SCH ×3 (08:05→22:14)
[2019-04-11] MEDS: Losartan 25 MG TAB PO SCH (08:05)
[2019-04-11] MEDS: Ezetimibe 10 MG TAB PO SCH (08:05)
[2019-04-11] MEDS: Aspirin 325 MG TAB PO SCH (08:07)
--- NOTE | 2019-04-11 12:17 | NM ---
Radionucleotide stress and rest myocardial perfusion scan with CT attenuation correction and SPECT im aging Left ventricular wall motion evaluation and ejection fraction HISTORY: Chest pain. FINDINGS: Adenosine protocol. A large area of markedly decreased radiotracer uptake involves the infe rior/lateral wall. No significant reversibility. No other focal perfusion defect. QGS analysis of gated SPECT images shows mildly diminished motion and thickening of the lateral wall. Ejection fraction calculated at 30%. IMPRESSION: Large area of scar at the inferolateral wall. No evidence of ischemia. Depressed ejection fraction of 30%.
--- NOTE | 2019-04-11 17:03 | EKG ---
Test Reason : Blood Pressure : / mmHG Vent. Rate : 061 BPM Atrial Rate : 061 BPM P-R Int : 128 ms QRS Dur : 096 ms QT Int : 448 ms P-R-T Axes : 058 -25 139 degrees QTc Int : 450 ms Normal sinus rhythm Abnormal ECG T wave inversion I, aVL, V5, V6 Similar to 03/24/2019 Confirmed by NEWTON FREGOSO DO ([id number]), editor house organ EUNICE TORRES ([id number]) on 04/11/2019 5:02:58 PM Referred By: Confirmed By:NEWTON FREGOSO DO
[2019-04-11] MEDS ORDERED: Atorvastatin Calcium 20 MG TAB PO SCH (21:00)
[2019-04-12 05:35] LABS: Anion Gap 9 mmol/L (10-20); BUN (Urea Nitrogen) 22 mg/dL (8.4-25.7); Calc. Creatinine Clearance 73 mL/min (70-130); Calcium 8.9 mg/dL (7.8-10.44); Carbon Dioxide 27 mmol/L (23-31); Chloride 112 mmol/L (98-107); Estimated GFR-MDRD 49; Glucose 101 mg/dL (80-115); Potassium 4.4 mmol/L (3.5-5.1); Sodium 144 mmol/L (136-145)
--- NOTE | 2019-04-12 05:58 | PDOC.FM ---
- Subjective Subjective: Pt is doing well today. No chest pain, no LE edema, no aggravating factors, no sob. - Objective Vital Signs & Weight: Vital Signs (12 hours) Temp Pulse Resp BP BP Pulse Ox 04/12/19 04:00 98.0 F 64 16 137/66 97 04/12/19 02:18 99 04/11/19 22:14 70 142/65 H 04/11/19 20:00 98.3 F 70 18 142/65 H 99 Weight Weight 106.141 kg I&O: 04/10/19 04/11/19 04/12/19 06:59 06:59 06:59 Intake Total 480 1900 Balance 480 1900 Result Diagrams: 04/08/19 08:08 04/12/19 04:35 Phys Exam - Physical Examination Constitutional: NAD Respiratory: no wheezing, clear to auscultation bilateral Cardiovascular: RRR, no significant murmur Gastrointestinal: soft, non-tender Musculoskeletal: no edema, pulses present Dx/Plan (1) Elevated troponin Code(s): R79.89 - OTHER SPECIFIED ABNORMAL FINDINGS OF BLOOD CHEMISTRY Status : Acute (2) History of ST elevation myocardial infarction (STEMI) Code(s): I25.2 - OLD MYOCARDIAL INFARCTION Status: Acute (3) Chest pain Code(s): R07.9 - CHEST PAIN, UNSPECIFIED Status: Acute (4) CAD (coronary artery disease) Code(s): I25.10 - ATHSCL HEART DISEASE OF [place] CORONARY ARTERY W/O ANG PCTRS Status: Chronic (5) DM type 2 (diabetes mellitus, type 2) Status: Chronic Qualifiers: Chronic kidney disease stage: stage 3 (moderate) (6) HLD (hyperlipidemia) Code(s): E78.5 - HYPERLIPIDEMIA, UNSPECIFIED Status: Chronic (7) HTN (hypertension) Code(s): I10 - ESSENTIAL (PRIMARY) HYPERTENSION Status: Chronic - Plan Plan: NSTEMI type 2 STEMI 2 weeks ago during admission for laminectomy procedure, CABG 1.5 years ago , previous stents Trops on admission: 0.241 -> 0.252 -> 0.197 Cath performed on 04/10/19 revealing non-complete occlusion at the bifurcation of 2 arteries on distal portion of stent placement. Stress test 04/11/19 revealed EF 30%, scarring and no new signs of ischemia. - Dr. Lira consulted; appreciate rec's and care - per recs: LifeVest, Beta Elías, Imdur, and ASA. Add plavix in 1-2 weeks. Focal Neurologic Deficit - R/O CVA - Left sided facial numbness, no other weakness/numbness - MRI: Mild prominence of ventricular system, recommended clinical correlation for NPH which was negative. No infarction or mass ROHIT Obstructive Uropathy, chronic No symptoms at this time. - Cr 1.4 - at baseline - consider adding flomax to patient regimen and f/u outpatient DMII, chronic - continue home meds - SSI and hypoglycemic protocol HLD, chronic - continue home meds HTN, well controlled on evaluation - continue home meds DVT ppx: asa Diet: HH IVF: none Code: Full Dispo: Plan for discharge today after patient is fitted for LifeVest
[2019-04-12] MEDS: Sodium Chloride 0.9% 1,000 ML IV SCH ×2 (06:09→15:29)
[2019-04-12] MEDS: Ezetimibe 10 MG TAB PO SCH (08:36)
[2019-04-12] MEDS: Aspirin 325 MG TAB PO SCH (08:36)
[2019-04-12] MEDS: Metoprolol Tartrate 100 MG TAB PO SCH (08:36)
[2019-04-12] MEDS: Losartan 25 MG TAB PO SCH (08:36)
[2019-04-12] MEDS: hydrALAZINE 25 MG TAB PO SCH ×2 (08:37→15:29)
[2019-04-12] MEDS ORDERED: Isosorbide Mononitrate (ER) 30 MG TAB PO SCH (09:00)
[2019-04-12 13:30] LABS: Anion Gap 9 mmol/L (10-20); BUN (Urea Nitrogen) 20 mg/dL (8.4-25.7); Calc. Creatinine Clearance 75 mL/min (70-130); Calcium 8.7 mg/dL (7.8-10.44); Carbon Dioxide 23 mmol/L (23-31); Chloride 112 mmol/L (98-107); Estimated GFR-MDRD 51; Glucose 108 mg/dL (80-115); Sodium 140 mmol/L (136-145)
--- NOTE | 2019-04-12 14:33 | PRG ---
DATE OF SERVICE: 04/12/2019 DISCUSSION: Mr. Pacheco is currently doing well. No current complaints. His creatinine initially peaked to 1.41. At noon today, it decreased to 1.38. PHYSICAL EXAMINATION: GENERAL: Patient is a pleasant gentleman who is in no acute distress. The patient appears their stated age. VITAL SIGNS: Blood pressure 135/75, pulse 61, temperature 98.2. NEUROLOGIC: The patient is alert and oriented x3 with no focal neurologic deficits. HEENT: Sclerae without icterus. Mouth has moist mucous membranes with normal pallor. NECK: No JVD. Carotid upstroke brisk. No bruits bilaterally. LUNGS: Clear to auscultation with unlabored respirations. BACK: No scoliosis or kyphosis. CARDIAC: Regular rate and rhythm with normal S1 and S2. No S3 or S4 noted. No significant rubs, murmurs, thrills, or gallops noted throughout the precordium. PMI is not displaced. There is no parasternal heave. ABDOMEN: Soft, nontender, nondistended. No peritoneal signs present. No hepatosplenomegaly. No abnormal striae. EXTREMITIES: 2+ femoral and 2+ dorsalis pedis pulses. No cyanosis, clubbing, or edema. SKIN: No gross abnormalities. PERTINENT LABORATORY DATA: Hemoglobin 12.1. Creatinine 1.38. IMPRESSION: 1. Chronic systolic failure. 2. Angina. 3. Previous myocardial infarction. 4. Recent laminectomy. RECOMMENDATIONS: Mr. Pacheco's most recent estimated EF was 30% on a nuclear stress study. I did recommend LifeVest. I have changed up his medications to reflect more heart failure type routine. I have stopped his metoprolol tartrate and added Coreg. I also added Plavix. I did discuss with Dr. Montero who is okay with proceeding with low-dose aspirin and Plavix. We will continue losartan in addition to Imdur. I also increased his statin therapy from atorvastatin 20 mg nightly to 40 mg nightly. Otherwise, from my standpoint, he will be okay for discharge home. The patient is to follow up with Dr. Sabino Rader in the next 1 to 2 weeks. Job ID: [id number]
[2019-04-12 15:21] VITALS: TEMP 97.8
[2019-04-12 16:59] VITALS: BP 140/65
[2019-04-12] MEDS ORDERED: Carvedilol 6.25 MG TAB PO SCH (17:00)
[2019-04-12] MEDS ORDERED: Atorvastatin Calcium 40 MG TAB PO SCH (21:00)
[2019-04-13] MEDS ORDERED: Clopidogrel Bisulfate 75 MG TAB PO SCH (09:00)
--- NOTE | 2019-04-13 13:42 | DIS ---
DATE OF ADMISSION: 04/07/2019 DATE OF DISCHARGE: 04/12/2019 RESIDENT: Barrie Velasco DO ADMITTING PHYSICIAN: Dr. Addie Paul DISCHARGE PHYSICIAN: Dr. Arvin Vásquez CONSULTS: [place] Lira MD, Cardiology. PROCEDURES: 1. Brain CT revealed no evidence of acute infarction, hemorrhage, mass effect or midline shift. The ventricular system was normal in size, shape, and position. 2. Chest x-ray revealed no acute cardiopulmonary processes. 3. Brain MRI revealed no acute territory infarction or mass effect. Mild prominence of ventricular system, slightly out of portion size of cerebral sulci. Recommended clinical correlation to exclude evidence of normal-pressure hydrocephalus. 4. The patient underwent a cardiac catheterization that revealed no significant blockages. 5. Nuclear medicine cardiac stress with EF and LVEF revealed a large area of markedly decreased radiotracer uptake involving the inferior lateral wall. No significant reversibility. No other willful perfusion deficit. Decreased ejection fraction of 30%. No evidence of ischemia. PRIMARY DIAGNOSES: 1. Non-ST segment elevation myocardial infarction, type 2. 2. Acute kidney injury. 3. Chronic diabetes. 4. Hypertension. 5. Hyperlipidemia. SECONDARY DIAGNOSES: 1. Coronary artery bypass graft, status post myocardial infarction 1 year ago. 2. Laminectomy 2 weeks ago. DISCHARGE MEDICATIONS: 1. Hydralazine 25 mg p.o. t.i.d. 2. Glipizide 2.5 mg p.o. b.i.d. 3. Ezetimibe 10 mg p.o. t.i.d. 4. Tramadol 50 mg q.i.d. 5. Isosorbide mononitrate 60 mg p.o. daily. 6. Aspirin 81 mg p.o. daily. 7. Atorvastatin 40 mg p.o. at bedtime. 8. Carvedilol 6.25 mg p.o. b.i.d. 9. Clopidogrel 75 mg p.o. daily. 10. Losartan 50 mg p.o. daily. 11. Nitroglycerin 0.4 mg sublingual q.5 minutes p.r.n. chest pain. DISCONTINUED MEDICATIONS: 1. Metoprolol 100 mg p.o. b.i.d. 2. Crestor 20 mg p.o. daily. HISTORY OF PRESENT ILLNESS/HOSPITAL COURSE: Mr. Rickey Pacheco is a 68-year-old male with past medical history significant for type 2 diabetes, hyperlipidemia, hypertension, CABG, catheterization with stent placement, laminectomy, who presents with chest tightness. He reported that he was not feeling well the day that he came in, chest tightness improved after nitroglycerin was given here. He was given 3 baby aspirins throughout the day. Two weeks prior, he underwent a laminectomy, where he ended up having an elevated troponin level. He was seen by Cardiology, who was going to do a catheterization in the outpatient setting, but due to his chest pain in the ED, decided they will do catheterization on 04/10/2019. During this time, he was taken off his Plavix and only took his aspirin. Troponin levels were 0.241, next was 0.252 and the third was 0.197. The patient did not experience any further chest pain throughout his visit and underwent catheterization on 04/10. Catheterization did not reveal any significant blockages or stenting. Cardiology then recommended a nuclear stress test. This revealed patent grafts noted to the LAD, RCA, and diagonal branch without obvious signs of stenosis present. There was scarring to the inferolateral wall, likely from previous AL. It was then recommended the patient be fitted for a LifeVest due to the ejection fraction of 30%. He was also started on carvedilol and discontinued from his metoprolol. Imdur, aspirin 81, Plavix 75 were continued. Of note, throughout his stay, he did have systolic blood pressures in the 160s to 170s resulting in the change in medications. On admission, the patient was found to have an ROHIT with creatinine at 1.82. The patient was fluid resuscitated and his creatinine went back to baseline at 1.38 on discharge. Of note, in the beginning of the admission, he complained of some urinary symptoms, at that time it was thought he might have BPH. Postvoid bladder scan was not performed, but the patient states that his symptoms resolved. This is worth looking into in the outpatient setting and consider starting medication if the patient has significant distress. Of note, the patient underwent testing for TIA-like symptoms. The patient stated he had left-sided facial numbness, which resolved. Then prompted CT and MRI, which were negative for acute infarction. He was noted to have enlarged ventricles, but did not have signs of normal-pressure hydrocephalus. The patient's vitals and electrolytes were corrected as needed. DISCHARGE INSTRUCTIONS: 1. Location: [facility]. 2. Diet: Heart healthy. 3. Activity: Cardiopulmonary precautions. 4. Followup: a. Follow up with Dr. Rader in 1 to 2 weeks. b. Follow up with [facility] in 1 to 2 weeks. DISPOSITION: Stable. Job ID: [id number] [id number]
== END 2019-04-12 18:20 | disposition home or self-care (01) | DRG 281 ==
LOC: ERS 16:02 → ERHOLD 17:36 → 2NO 20:35
PROVIDERS: ADMIT Family Medicine; ATTEND Family Medicine
PROC: 4A023N7 Measurement of Cardiac Sampling and Pressure, Left Heart, Percutaneous Approach (ICD-10-PCS; principal; 2019-04-07)
PROC: B2111ZZ Fluoroscopy of Multiple Coronary Arteries using Low Osmolar Contrast (ICD-10-PCS; 2019-04-07)
PROC: B2151ZZ Fluoroscopy of Left Heart using Low Osmolar Contrast (ICD-10-PCS; 2019-04-07)
PROC: B2121ZZ Fluoroscopy of Single Coronary Artery Bypass Graft using Low Osmolar Contrast (ICD-10-PCS; 2019-04-07)
PROC: B2181ZZ Fluoroscopy of Left Internal Mammary Bypass Graft using Low Osmolar Contrast (ICD-10-PCS; 2019-04-07)
DX: I25.110 Atherosclerotic heart disease of native coronary artery with unstable angina pectoris (principal); I21.A1 Myocardial infarction type 2; N17.9 Acute kidney failure, unspecified; I50.22 Chronic systolic (congestive) heart failure; I13.0 Hypertensive heart and chronic kidney disease with heart failure and stage 1 through stage 4 chronic kidney disease, or unspecified chronic kidney disease; N40.0 Benign prostatic hyperplasia without lower urinary tract symptoms; E78.5 Hyperlipidemia, unspecified; N13.9 Obstructive and reflux uropathy, unspecified; E11.22 Type 2 diabetes mellitus with diabetic chronic kidney disease; Z95.1 Presence of aortocoronary bypass graft; Z98.890 Other specified postprocedural states; Z79.02 Long term (current) use of antithrombotics/antiplatelets; Z79.82 Long term (current) use of aspirin; Z87.891 Personal history of nicotine dependence
CPT/HCPCS: 36415; 36416; 70450; 70551; 71045; 76942; 78452; 80048; 80053; 81003; 82553; 84484; 85025; 85610; 85730; 93005; 93017; 93455; 99152; 99153; A9500; C1769; C1887; J0153; J0360; J1644; J2001; J2250; J3010; Q9967

== ENCOUNTER 2022-03-10 12:32 | Outpatient (CLI) | payer MEDICARE, OTHER | END 2022-03-10 12:33 | disposition home or self-care (01) | LOC: TBSIIMAG 12:32 | PROVIDERS: ATTEND Physician Assistant | DX: M48.02 Spinal stenosis, cervical region (principal); M47.812 Spondylosis without myelopathy or radiculopathy, cervical region; Z98.890 Other specified postprocedural states | CPT/HCPCS: 72050 ==